=== PATIENT | male | born 1940 | race African-American/Black ===

== ENCOUNTER 2019-06-17 17:50 | IRF | payer MEDICARE, SELFPAY ==
--- NOTE | ~2019-06-17 | XR_ITS ---
EXAMINATION: XR knee LT 2V DATE: 06/20/2019 14:06 INDICATION: Left knee pain and swelling TECHNIQUE: Anteroposterior and crosstable lateral views of the left knee were obtained COMPARISON: None. FINDINGS: Alignment is normal. No fracture. Large left knee joint effusion/synovitis without layering lipohema rthrosis. Joint spaces appear relatively preserved on nonweightbearing imaging. Small osteophyte nitesh g the lateral margin of the anterior weightbearing medial femoral condyle. No cortical erosions. Smal l enthesophyte at the anterior tibial tuberosity. Bone island at the left femoral condyle. IMPRESSION: 1. Large left knee joint effusion and/or synovitis at the suprapatellar pouch. No acute osseous abnor mality. Reviewed, dictated and finalized at location A. D DESIGN ENGINEER IMPRESSION: 1. Large left knee joint effusion and/or synovitis at the suprapatellar pouch. No acute osseous abnormality.
--- NOTE | ~2019-06-17 | US_ITS ---
EXAMINATION: US venous doppler LE EXAM DATE: 06/18/2019 15:14 INDICATION: Bilateral lower extremity pain and tenderness. TECHNIQUE: Multiple grayscale, color flow and Doppler images of the lower extremity deep venous syste ms bilaterally were obtained and reviewed. There is no prior study for comparison. FINDINGS: Right side: The right common femoral, femoral and profunda veins demonstrate normal color flow, respi ratory variation, augmentation and compressibility. Compressibility, color flow confirmed within the right popliteal, posterior tibial, peroneal, and greater saphenous veins. Left side: The left common femoral, femoral and profunda veins demonstrate normal color flow, respira tory variation, augmentation and compressibility. Compressibility, color flow confirmed within the l eft popliteal, posterior tibial, peroneal, and greater saphenous veins. IMPRESSION: 1. No lower extremity deep venous thrombosis bilaterally. Reviewed, dictated and finalized at location B. CIPAL ADMINISTRATIVE CLERK
--- NOTE | ~2019-06-17 | XR_ITS ---
EXAMINATION: XR chest 2V DATE: 07/08/2019 14:32 INDICATION: Tuberculosis. TECHNIQUE: Frontal and lateral views of the chest were obtained. COMPARISON: None. FINDINGS: The chest demonstrates clear lungs without pneumonia, pleural effusion, or pneumothorax. Th e heart size is normal. IMPRESSION: 1. No acute cardiopulmonary disease. Reviewed, dictated and finalized at location A. L FOOD SERVICE SUPERVISOR
--- NOTE | ~2019-06-17 | XR_ITS ---
EXAMINATION: XR foot LT 2V, XR foot RT 2V DATE: 06/20/2019 14:06 INDICATION: Severe bilateral foot pain TECHNIQUE: 1. Dorsoplantar and lateral views of the left foot were obtained. 2. Dorsoplantar and lateral views of the right foot were obtained. COMPARISON: None. FINDINGS: Normal alignment at both feet. No acute fracture identified. There are intra-articular and extra hilda cular erosions at the heads of the left and right metatarsals, base of the first proximal phalanx and at the medial head of the right fifth metatarsal with location and configuration suggestive of gout. Likely enthesophyte at the lateral tuberosity at the base of the right fifth metatarsal. Mild osteoa rthritis at the bilateral first metatarsophalangeal joints and at the right third tarsal metatarsal j oint. IMPRESSION: 1. Cortical erosions at the heads of the right fifth and bilateral first metatarsals and at the base of the right first proximal phalanx which given location and appearance along with the only minimal a ssociated joint space tearing at the metatarsophalangeal joints would favor gout over other inflammat ory arthritides. 2. Mild polyarticular osteoarthritis. Reviewed, dictated and finalized at location A. ECT MANAGER PROCESS DEVELOPMENT IMPRESSION: 1. Cortical erosions at the heads of the right fifth and bilateral first metata rsals and at the base of the right first proximal phalanx which given location and appearance along with the only minimal associated joint space tearing at th e metatarsophalangeal joints would favor gout over other inflammatory arthritid es. 2. Mild polyarticular osteoarthritis.
--- NOTE | ~2019-06-17 | US_ITS ---
US renal BI 07/06/2019 13:35 Procedure: Realtime transabdominal ultrasound of the kidneys and bladder. Indication: Elevated BUN/creatinine Comparison: No prior studies for comparison. Findings: There is a right renal cyst measuring 2 cm. No solid masses, stones or hydronephrosis. The right kidney measures 9.1 cm and left kidney measures 9.1 cm. Bladder within normal limits. The pros jalloh gland is enlarged. Impression: 1: 2 cm right renal cyst. 2: Enlarged prostate gland. Reviewed, dictated and finalized at location B. R USE INSPECTOR Impression: 1: 2 cm right renal cyst. 2: Enlarged prostate gland.
--- NOTE | ~2019-06-17 | CT_ITS ---
EXAMINATION: CT brain wo con EXAM DATE: 06/25/2019 11:01 INDICATION: Impaired swallowing, decreased level of consciousness. Lethargic. Confusion. Temporary change in awareness. TECHNIQUE: Spiral CT of the head was performed without contrast. Axial, coronal and sagittal images were reviewed. The dose-length product (DLP) for this examination was 605.33 mGy-cm. The exposure w as tailored according to patient size, and iterative reconstruction (ASIR) was used as additional dos e reduction technique. There is no prior study for comparison. FINDINGS: There is no acute intraparenchymal hemorrhage. No evidence of intraparenchymal brain mass lesion. No evidence of acute infarction. Please note that initial head CT has limited sensitivity f or small or acute infarctions. There is old left caudate head and there are bilateral old thalamic l acunar infarctions. There is periventricular and subcortical hypodensity, nonspecific but probably r elated to small vessel ischemic disease. There is prominence of the sulci and ventricles related to cerebral atrophy. There is intracranial carotid arteriosclerosis. There are no extra-axial collec tions. There is no mass effect or midline shift. Patient has had bilateral ocular lens surgery. So ft tissue is unremarkable. The visualized sinuses and mastoid air cells are well aerated. IMPRESSION: 1. No acute intracranial findings. 2. Chronic age related findings. 3. Old lacunar infarctions. Reviewed, dictated and finalized at location A. UCTION ASSISTANT
[2019-06-17 17:50] VITALS: BP 140/67; PULSE 88; RESP 20; TEMP 36.8; O2SAT 99; BMI 23.1
--- NOTE | 2019-06-17 18:49 | ADMGEN ---
This patient, Joey Abebe, was admitted to [facility] Room 219-02. Patient/family oriented to hospital policies and general routines including ID bracelet, bed and alarms, visiting hours, pain management, procedures, bathroom and other care routines, personal items, smoking policy, room service/diet, and visiting hours. Valuables list has been completed. Information on how to activate the Rapid Response Team has been discussed. Patient/Family are encouraged to report perceived risks to care and to ask questions if they do not understand what they are told or what they should do.
[2019-06-17 20:21] VITALS: BP 132/76; PULSE 86; RESP 16; TEMP 37.1; O2SAT 94
[2019-06-18 04:50] LABS: Basophils Percent Auto 0.2 % (0.2-1.2); Eosinophils Percent Auto 0.3 % (0-4.4); Hematocrit 28.6 % (42.0-52.0); Hemoglobin 9.1 g/dL (14.0-18.0); Immature Granulocyte Absolute 0.09 K/mm3 (0.00-0.031); Immature Granulocyte Percent A 0.8 % (0-0.5); Lymphocytes Absolute Auto 1.06 K/mm3 (0.9-3.2); Lymphocytes Percent Auto 9.2 % (18.3-44.2); Mean Corpuscular HGB Conc 31.8 g/dl (32-36); Mean Corpuscular Volume 97.3 fl (80-100); Mean Platelet Volume 9.4 fl (7.4-10.4); Monocytes Absolute Auto 0.9 K/mm3 (0.1-0.6); Monocytes Percent Auto 8.2 % (2.6-8.5); Neutrophils Absolute Auto 9.4 K/mm3 (1.3-6.7); Neutrophils Percent Auto 81.3 % (45.5-73.1); Platelet Count Result 208 k/mm3 (150-375); Red Blood Count 2.94 M/mm3 (4.6-6.20); Red Cell Distribution Width 12.8 % (11.5-14.5); White Blood Count 11.5 K/mm3 (4.5-10.0)
[2019-06-18 05:13] LABS: Blood Urea Nitrogen 28 mg/dL (9-20); Calcium 8.3 mg/dL (8.4-10.2); Carbon Dioxide 24 mmol/L (22-30); Chloride 105 mmol/L (98-107); Cholesterol 102 mg/dL (0-200); Estimated CRCL calculation 33 ml/min; Estimated Glomerular Filt Rate 47; Glucose 136 mg/dL (75-110); HDL Direct 31 mg/dL; Potassium 3.8 mmol/L (3.4-5.0); Sodium 140 mmol/L (137-145); Triglycerides 57 mg/dL (<150)
[2019-06-18 05:24] LABS: LDL Cholesterol Direct 43 mg/dL
[2019-06-18 06:05] VITALS: BP 155/76; PULSE 95; RESP 18; TEMP 37; O2SAT 98
[2019-06-18] MEDS: hydroCHLOROthiazide 25 MG TABLET PO (08:57)
[2019-06-18] MEDS: ISOSORBIDE MONONITRATE 60 MG TAB.ER.24H PO (08:57)
[2019-06-18] MEDS: LOSARTAN POTASSIUM 100 MG TABLET PO (08:57)
[2019-06-18] MEDS: AMLODIPINE BESYLATE 5 MG TABLET 10 MG PO (08:57)
--- NOTE | 2019-06-18 11:00 | WPDREHABHP ---
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 The patient is an 79-year-old Afro[place] male with a past medical history of diabetes mellitus, hypertension, and hyperlipidemia who presented to his primary care physician on June 10, 2019 with lower extremity weakness and urinary incontinence. The primary care physician sent him to the emergency room at [facility] on the same day after his blood pressure was recorded at 206/100 in the office. He received IV labetalol in the emergency room. CT of the head demonstrated 1.4 x 1.2 centimeter density in the left basal ganglia consistent with hemorrhage/hematoma . Chest x-ray was negative. Troponins were elevated but stable. EKG showed first-degree AV block and nonspecific T-wave changes. Urinalysis was negative for infection but showed protein urea. No leukocytosis or fever recorded. Neurosurgery was consulted and he was admitted to ICU on a nicardipine drip. MRI of the brain did confirm the hemorrhage by showing redemonstration of 1.4 centimeter acute intraparenchymal hemorrhage in the left thalamus and also showed surrounding edema with mild mass effect upon the 3rd ventricle. There was also a possible small recent infarct along/ adjacent to the left splenium of the corpus callosum. the nicardipine drip was stopped overnight on June 11, 2019 when his blood pressure were at goal. It was restarted at on June 12, 2019 he was subsequently started on his oral home medications of amlodipine hydralazine Imdur and losartan and nicardipine drip was discontinued finally on the same day his amlodipine was increased on June 13, 2019. His hypertensive encephalopathy completely resolved. His creatinine was elevated to 1.6 on June 13, 2019 and given that he likely has chronic kidney disease ( 1.4 in August of 2017) in the setting of diabetes mellitus and hypertension. He is hemodynamically stable with a hemoglobin of 11.4. Diabetes large under control with hemoglobin A1c was 6.3. He passed his swallowing examination was placed on general diet. Physical examination continues to reveal right-sided weakness balance impairment decreased gross motor control and decreased safety responses and awareness and in fact on my examination he does have a speech defect going along with the left thalamic basal ganglia hemorrhage and expressive and comprehensive aphasia as time with bilateral lower extremity weakness. DVT prophylaxis with sequential compression devices only in the setting of hemorrhage. Therapy was initiated at the acute care facility and the patient transferred to us from [facility] on June 17, 2019 on June 17, 2019 FALLS OR SURGERIES: The patient has had no major surgeries in the 100 days prior to admission. They had no falls in the past year. They had no falls with injury in the past year. PASTMEDICAL HX diabetes mellitus high cholesterol hypertension PAST SURGICAL HISTORY: left hip surgery SOCIAL HISTORY: patient lives with his in a 1 level home with the level entry. Was independent with ADLs and functional transverse prior. He uses single-point cane for ambulation. He does not he does have a history of falls in the past year no major surgeries never smoker no alcohol drug abuse FAMILY HISTORY: several members of his family do have history of diabetes mellitus hypertension and heart disease PRIOR LEVEL OF FUNCTION: Eating was INDEPENDENT Oral Care was INDEPENDENT Toileting Hygiene was INDEPENDENT Shower/Bathing was INDEPENDENT Upper Body Dressing was INDEPENDENT Lower Body Dressing was INDEPENDENT Donning/Tabernash Footwear was INDEPE
[2019-06-18 12:56] VITALS: BMI 23.1
[2019-06-18 14:00] VITALS: BP 147/62; PULSE 84; RESP 20; TEMP 36.5; O2SAT 98
--- NOTE | 2019-06-18 14:54 | PCNSR ---
On 06/18/19, the student, Daniella Pope, provided care and completed [facility] documentation on this patient. I have reviewed the student's documentation and agree with the findings.
--- NOTE | 2019-06-18 16:59 | RPD ---
INDIVIDUALIZED PLAN OF CARE FOR Joey Abebe Brief Synthesis of Pre-Admission Screen, Post-Admission Evaluation and Therapy Evaluations: The patient presents to rehab with a left thalamic intraparechymal hemorrhage. Comorbidities include hypertensive emergency, diabetes mellitus, hypercholesterolemia, hypertensive encephalopathy, acute kidney injury, anemia, and weakness. Deficits include:ADLs, Balance, Cognition, Endurance, Family Training/Education, Mobility, Pain Management, ROM, Safety, Strength, and Transfers. Loan Servicing Officer/Case Management for: Discharge Planning and Patient/Family Counseling Physical Therapy: 5 days per week for 60 minutes. Treatments may include: Therapeutic Exercise, Gait Training, Neuromuscular Re-education, Transfer Training, Community Reintegration, Bed Mobility, Patient/Family Education, Wheelchair Mobility Group Therapy/Concurrent Therapy Rationales: -Improve attention span during functional activities in a distracted environment. -Enhance problem solving and/or adequate judgment skills during functional activities in a distracted environment. -Promote increased safety awareness in a distracted environment to reduce fall risk with functional tasks, transfers, and ambulation to allow a more safe, self-sufficient return to the home environment. -Improve dynamic balance skills to promote safety and independence with functional activities in a distracted environment for maximum gain. Occupational Therapy: 5 days per week for 60 minutes. Treatments may include: Therapeutic Exercise, Therapeutic Activity, Cognitive Training, Self-Care Transfer Training, Community Reintegration, Home Management, Patient/Family Education, Wheelchair Mobility Training, Energy Conservation Training Group Therapy/Concurrent Therapy Rationales: -Allow therapist to observe and teach generalization and carry-over of skills learned in individual therapy. -Enhance problem solving and sequencing skills during therapeutic activities in a distracted environment. -Promote increased safety awareness in a realistic setting to reduce fall risk with functional tasks due to visual and verbal distractions. -Increase functional level with ADLs, ADL transfers and use of adaptive equipment through therapeutic activities with others while promoting safety to allow a more safe, self-sufficient return home. Speech Therapy: 5 days per week for 60 minutes. Treatments may include: Dysphasia Therapy, Speech/Language/Communication Therapy, Cognitive Training, Patient/Family Education Group Therapy/Concurrent Therapy - Rationale: -Allow therapist to observe and teach generalization and carry-over of skills learned in individual therapy. -Improve comprehension skills with complex or abstract ideas through discussion in a realistic setting. -Enhance problem solving skills with complex issues during activities in a distracted environment. -Promote increased memory skills and concentration in a distracted environment for a safe transition home. -Improve attention and focus with language/communication skills in a realistic and supportive therapeutic setting. -Allow for practice of expression of basic needs and ideas through functional activities with others. Medical Prognosis: Good Anticipated Length of Stay: 10 days Rehab Goals: Eating Goal: 06-Independent Oral Hygiene Goal: 06-Independent Toileting Hygiene Goal: 03-Partial/Moderate Assistance Shower/Bathe Self Goal: 03-Partial/Moderate Assistance Upper Body Dressing Goal: 05-Setup or Clean Up Assistance Lower Body Dressing Goal: 03-Partial/Moderate Assistance Putting On/Taking Off Footwear Goal: 03-Partial/Moderate Assistance Rolling Left and Right Goal: 04-Supervision or Touching Assistance Sit to Lying Goal: 04-Supervision or Touching Assistance Lying to Sitting on Side of Bed Goal: 04-Supervision or Touching Assistance Sit to Stand Goal: 04-Supervision or Touching Assistance Chair/Dir-za-Vjher Transfer Goal: 04-Supervis
[2019-06-18 22:00] VITALS: BP 160/76; PULSE 99; RESP 16; TEMP 37.4; O2SAT 99
[2019-06-19 06:00] VITALS: BP 150/74; PULSE 98; RESP 16; TEMP 36.9; O2SAT 99
[2019-06-19] MEDS: AMLODIPINE BESYLATE 5 MG TABLET 10 MG PO (09:11)
[2019-06-19] MEDS: ISOSORBIDE MONONITRATE 60 MG TAB.ER.24H PO (09:11)
[2019-06-19] MEDS: hydroCHLOROthiazide 25 MG TABLET PO (09:11)
[2019-06-19] MEDS: LOSARTAN POTASSIUM 100 MG TABLET PO (09:12)
--- NOTE | 2019-06-19 11:00 | WPDNEURORHBP ---
Subjective Date/time seen: June 19, 2019 at 11:00 a.m. Interval history: patient has less amount of pay aching discomfort in his lower extremities is still remains aphasic to a certain extent with right-sided weakness however both lower extremity weakness with some muscle spasm He denies any headache chest pain shortness of breath or any neurological symptoms Review of Systems Constitutional: Constitutional: Reports no additional constitutional complaints Eyes: Eyes: Reports no additional eye complaints ENT: Reports system reviewed and no additional complaints, except as documented Cardiovascular: Cardiovascular: Reports no additional cardiovascular complaints Respiratory: Respiratory: Reports no additional respiratory complaints Gastrointestinal: Gastrointestinal: Reports no additional gastrointestinal complaints Genitourinary: Genitourinary: Reports no additional male genitourinary complaints Musculoskeletal: Musculoskeletal: Reports no additional musculoskeletal complaints Integumentary/Breasts: Skin/Breast: Reports system reviewed and no additional complaints, except as docu Neurologic: Reports system reviewed and no additional complaints, except as documented Psychiatric: Psychiatric: Reports no additional psychiatric complaints Exam Const: General: comfortable and no acute distress HENMT: General nose exam: Normal nares present Mouth: Yes moist mucous membranes Eyes: General: appearance normal, both eyes and all related structures Neck: Neck: supple and no JVD Resp: Effort & Inspection: normal respiratory effort Auscultation: clear to auscultation bilaterally Cardio: Rate: regular rate Rhythm: regular rhythm GI: GI Palp: Yes Soft to palpation Auscultation: normal bowel sounds Skin: General skin exam: normal color and no rashes or lesions noted Neuro: Other: patient is awake and alert will oriented in time place and person however clearly has aphasic defect and right-sided weakness along with bilateral lower extremity weakness with overall neurological examination stable without any worsening Extrem: General: normal to inspection Objective Data Vital Signs Vital Signs: Vital Signs - 24 hr 06/19/19 14:00 06/19/19 22:00 06/20/19 06:00 Temperature 36.8 C 37.2 C 37.1 C Pulse Rate 89 96 100 Respiratory Rate 18 18 18 Blood Pressure 145/68 H 174/82 H 160/84 H Pulse Oximetry 98 99 98 Intake/Output Intake/Output: Intake & Output 06/17/19 06/18/19 06/19/19 06/20/19 23:59 23:59 23:59 23:59 Intake Total 480 420 240 Balance 480 420 240 Meds/Results Medications: Active Medications Generic Name Dose Route Start Last Admin Trade Name Santiagoq PRN Reason Stop Dose Admin Acetaminophen 650 mg 06/17/19 20:19 Tylenol Tablet PO Q6H PRN Pain (Scale Score 1-3) Amlodipine Besylate 10 mg 06/18/19 09:00 06/20/19 08:32 Norvasc PO 10 mg DAILY VERONIQUE Administration Hydrochlorothiazide 25 mg 06/18/19 09:00 06/20/19 08:32 Hydrochlorothiazide PO 25 mg DAILY VERONIQUE Administration Isosorbide Mononitrate 60 mg 06/18/19 09:00 06/20/19 08:32 Imdur PO 60 mg DAILY VERONIQUE Administration Losartan Potassium 100 mg 06/18/19 09:00 06/20/19 08:32 Cozaar PO 100 mg DAILY VERONIQUE Administration Trolamine Salicylate 1 applic 06/18/19 09:00 06/20/19 08:32 Mobisyl TOPICAL 1 applic DAILY VERONIQUE Administration Trolamine Salicylate 1 applic 06/17/19 23:26 Mobisyl TOPICAL PRN PRN FOOT PAIN Radiology Results: ITS Impressions Venous Doppler Study 06/18/19 15:15 IMPRESSION: 1. No lower extremity deep venous thrombosis bilaterally. Progress Note: A&P Assessment and Plan (1) Hyperlipidemia: Code(s): E78.5 - Hyperlipidemia, unspecified Status: Acute (2) Hypertension: Code(s): I10 - Essential (primary) hypertension Status: Acute (3) Diabetes mellitus: Code(s): E11.9 - Type 2 diabetes debo
[2019-06-19 14:00] VITALS: BP 145/68; PULSE 89; RESP 18; TEMP 36.8; O2SAT 98
[2019-06-19 22:00] VITALS: BP 174/82; PULSE 96; RESP 18; TEMP 37.2; O2SAT 99
[2019-06-20 06:00] VITALS: BP 160/84; PULSE 100; RESP 18; TEMP 37.1; O2SAT 98
[2019-06-20] MEDS: LOSARTAN POTASSIUM 100 MG TABLET PO (08:32)
[2019-06-20] MEDS: AMLODIPINE BESYLATE 5 MG TABLET 10 MG PO (08:32)
[2019-06-20] MEDS: hydroCHLOROthiazide 25 MG TABLET PO (08:32)
[2019-06-20] MEDS: ISOSORBIDE MONONITRATE 60 MG TAB.ER.24H PO (08:32)
--- NOTE | 2019-06-20 13:59 | WPDNEURORHBP ---
Subjective Date/time seen: 06/20/19 13:59 Interval history: this 79-year-old gentleman is here after suffering from intracranial hemorrhage in the left thalamic basal ganglia region which has left him with the generalized weakness right more so than the left however he does have bilateral lower extremity pain including the knee and the foot which is hard to explain just on the basis of the intracranial hemorrhage the venous Doppler is negative for any venous thrombosis I am suspecting is possibly could be a gout because he does have a remote history of having at gout according to his Review of Systems Constitutional: Constitutional: Reports no additional constitutional complaints Eyes: Eyes: Reports no additional eye complaints ENT: Reports system reviewed and no additional complaints, except as documented Cardiovascular: Cardiovascular: Reports no additional cardiovascular complaints Respiratory: Respiratory: Reports no additional respiratory complaints Gastrointestinal: Gastrointestinal: Reports no additional gastrointestinal complaints Genitourinary: Genitourinary: Reports no additional male genitourinary complaints Musculoskeletal: Musculoskeletal: Reports no additional musculoskeletal complaints Integumentary/Breasts: Skin/Breast: Reports system reviewed and no additional complaints, except as docu Neurologic: Reports system reviewed and no additional complaints, except as documented Psychiatric: Psychiatric: Reports no additional psychiatric complaints Exam Const: General: comfortable and no acute distress HENMT: General nose exam: Normal nares present Mouth: Yes moist mucous membranes Eyes: General: appearance normal, both eyes and all related structures Neck: Neck: supple and no JVD Resp: Effort & Inspection: normal respiratory effort Auscultation: clear to auscultation bilaterally Cardio: Rate: regular rate Rhythm: regular rhythm GI: GI Palp: Yes Soft to palpation Auscultation: normal bowel sounds Skin: General skin exam: normal color and no rashes or lesions noted Neuro: Other: patient is alert and oriented sitting in the chair he is quite tender in his lower extremities very bright touch it is hard to discern what the cause of his discomfort or pain is the little swelling of the left knee and the foot however that I am not entirely clear is responsible for his aches and pains in the lower extremities which hamper his PT and OT Extrem: Other: tender left knee and tender both lower extremities equally to a point that the patient becomes very uncomfortable when places in the leg and feet are touch Psych: Mental Status: mental status grossly normal Objective Data Vital Signs Vital Signs: Vital Signs - 24 hr 06/19/19 14:00 06/19/19 22:00 06/20/19 06:00 Temperature 36.8 C 37.2 C 37.1 C Pulse Rate 89 96 100 Respiratory Rate 18 18 18 Blood Pressure 145/68 H 174/82 H 160/84 H Pulse Oximetry 98 99 98 Intake/Output Intake/Output: Intake & Output 06/17/19 06/18/19 06/19/19 06/20/19 23:59 23:59 23:59 23:59 Intake Total 480 420 240 Balance 480 420 240 Meds/Results Medications: Active Medications Generic Name Dose Route Start Last Admin Trade Name Freq PRN Reason Stop Dose Admin Acetaminophen 650 mg 06/17/19 20:19 Tylenol Tablet PO Q6H PRN Pain (Scale Score 1-3) Amlodipine Besylate 10 mg 06/18/19 09:00 06/20/19 08:32 Norvasc PO 10 mg DAILY VERONIQUE Administration Hydrochlorothiazide 25 mg 06/18/19 09:00 06/20/19 08:32 Hydrochlorothiazide PO 25 mg DAILY VERONIQUE Administration Isosorbide Mononitrate 60 mg 06/18/19 09:00 06/20/19 08:32 Imdur PO 60 mg DAILY VERONIQUE Administration Losartan Potassium 100 mg 06/18/19 09:00 06/20/19 08:32 Cozaar PO 100 mg DAILY VERONIQUE Administration Trolamine Salicylate 1 applic 06/18/19 09:00 06/20/19 08:32 Mobisyl TOPICAL 1 applic DAILY VERONIQUE Administration Trolamine Salicylate 1 javi
[2019-06-20 14:00] VITALS: BP 158/76; PULSE 92; RESP 18; TEMP 36.4; O2SAT 95
[2019-06-20 14:11] LABS: Uric Acid 8.2 mg/dL (3.5-8.5)
[2019-06-20] MEDS: ACETAMINOPHEN 500 MG TABLET 1000 MG PO (17:48)
[2019-06-20] MEDS: COLCHICINE 0.6 MG TABLET PO (20:02)
[2019-06-20 21:05] VITALS: BP 147/81; PULSE 86; RESP 20; TEMP 37.2; O2SAT 100
[2019-06-21 06:00] VITALS: BP 173/90; PULSE 100; RESP 16; TEMP 37; O2SAT 100
[2019-06-21] MEDS: ACETAMINOPHEN 500 MG TABLET 1000 MG PO ×3 (08:49→19:48)
[2019-06-21] MEDS: hydroCHLOROthiazide 25 MG TABLET PO (08:50)
[2019-06-21] MEDS: AMLODIPINE BESYLATE 5 MG TABLET 10 MG PO (08:50)
[2019-06-21] MEDS: ISOSORBIDE MONONITRATE 60 MG TAB.ER.24H PO (08:50)
[2019-06-21] MEDS: COLCHICINE 0.6 MG TABLET PO ×2 (08:50→19:49)
[2019-06-21] MEDS: LOSARTAN POTASSIUM 100 MG TABLET PO (08:51)
--- NOTE | 2019-06-21 12:57 | PCDIET ---
Nutrition Follow-Up Complete: Inadequate energy intake related to weakness and lower appetite as evidenced by family's report of unintentional weight loss of a few pounds. Pt will consume greater than 75% of all meals Goal not met. Pt has eaten 0-40% of meals. Nutrition recommendation: Recommend diet order be changed to DM CHO consistent and low-sodium (4gm)to help control blood glucose levels and HTN, and help pt meet nutrient needs. Recommend addition of Thrive BID to provide additional Pro and calories. Last recorded weight is 75.4 kg. Bowel Motility:+BM 06/20 Labs Reviewed:Last recorded labs from 06/18: Na(140), K(3.8), GFR(47), Cr(1.7) Meds Noted:Norvasc, Imdur, colchicine Po, cozaar Additional Notes: Pt states appetite is ok, that it comes and goes. Eats 0-40% of all meals. Reports no N/V or abdominal pain, just lack of hunger. Provided stroke ed to pt and , although pt quickly lost focus. Will monitor labs and intake. Will follow up in 3 days.
[2019-06-21 14:00] VITALS: BP 135/72; PULSE 82; RESP 12; TEMP 36.5; O2SAT 100
--- NOTE | 2019-06-21 14:01 | PCNSR ---
On 06/21/19, the student, Daniella Pope, provided care and completed [facility] documentation on this patient. I have reviewed the student's documentation and agree with the findings.
[2019-06-21 22:00] VITALS: BP 144/73; PULSE 84; RESP 18; TEMP 36.6; O2SAT 99
[2019-06-22 06:00] VITALS: BP 138/76; PULSE 88; RESP 18; TEMP 36.3; O2SAT 98
[2019-06-22 08:00] VITALS: PULSE 88; RESP 18; O2SAT 98
[2019-06-22] MEDS: LOSARTAN POTASSIUM 100 MG TABLET PO (09:26)
[2019-06-22] MEDS: ISOSORBIDE MONONITRATE 60 MG TAB.ER.24H PO (09:26)
[2019-06-22] MEDS: hydroCHLOROthiazide 25 MG TABLET PO (09:26)
[2019-06-22] MEDS: AMLODIPINE BESYLATE 5 MG TABLET 10 MG PO (09:26)
[2019-06-22] MEDS: COLCHICINE 0.6 MG TABLET PO ×2 (09:26→20:19)
[2019-06-22] MEDS: ACETAMINOPHEN 500 MG TABLET 1000 MG PO ×3 (09:27→17:28)
[2019-06-22 14:00] VITALS: BP 131/67; PULSE 88; RESP 16; TEMP 36.4; O2SAT 100
--- NOTE | 2019-06-22 14:39 | WPDNEURORHBP ---
Subjective Date/time seen: 06/22/19 14:39 Interval history: this 79-year-old gentleman is here after suffering from intracranial hemorrhage affecting the left side /left cerebral hemisphere with is speech defect and right-sided hemiparesis however is Hermann handicap been pain in his both lower extremities where he is unable to engage in therapy in spite of the use of colchicine which has started him with the presumptive diagnosis of gout in his foot and the left knee The consultation from the orthopedic physician for his left knee fusion is pending No headache no chest pain no abdominal pain no fever no chills no sore throat and no nausea and vomiting Review of Systems Constitutional: Constitutional: Reports no additional constitutional complaints Eyes: Eyes: Reports no additional eye complaints ENT: Reports system reviewed and no additional complaints, except as documented Cardiovascular: Cardiovascular: Reports no additional cardiovascular complaints Respiratory: Respiratory: Reports no additional respiratory complaints Gastrointestinal: Gastrointestinal: Reports no additional gastrointestinal complaints Genitourinary: Genitourinary: Reports no additional male genitourinary complaints Musculoskeletal: Musculoskeletal: Reports no additional musculoskeletal complaints Integumentary/Breasts: Skin/Breast: Reports system reviewed and no additional complaints, except as docu Exam Const: General: comfortable and no acute distress HENMT: General nose exam: Normal nares present Mouth: Yes moist mucous membranes Eyes: General: appearance normal, both eyes and all related structures Neck: Neck: supple and no JVD Resp: Effort & Inspection: normal respiratory effort Auscultation: clear to auscultation bilaterally Cardio: Rate: regular rate Rhythm: regular rhythm GI: GI Palp: Yes Soft to palpation Auscultation: normal bowel sounds Skin: General skin exam: normal color and no rashes or lesions noted Neuro: Other: patient is partially oriented in time place and person mild speech defect bilateral lower extremity weakness due to pain and discomfort more so than anything else along with right-sided hemiparesis Extrem: General: normal to inspection Objective Data Vital Signs Vital Signs: Vital Signs - 24 hr 06/21/19 22:00 06/22/19 06:00 06/22/19 08:00 Temperature 36.6 C 36.3 C L Pulse Rate 84 88 88 Respiratory Rate 18 18 18 Blood Pressure 144/73 H 138/76 Pulse Oximetry 99 98 98 Intake/Output Intake/Output: Intake & Output 06/19/19 06/20/19 06/21/19 06/22/19 23:59 23:59 23:59 23:59 Intake Total 420 600 600 240 Balance 420 600 600 240 Meds/Results Medications: Active Medications Generic Name Dose Route Start Last Admin Trade Name Freq PRN Reason Stop Dose Admin Acetaminophen 650 mg 06/17/19 20:19 Tylenol Tablet PO Q6H PRN Pain (Scale Score 1-3) Acetaminophen 1,000 mg 06/20/19 17:00 06/22/19 14:31 Tylenol Tablet PO 1,000 mg TID VERONIQUE Administration Amlodipine Besylate 10 mg 06/18/19 09:00 06/22/19 09:26 Norvasc PO 10 mg DAILY VERONIQUE Administration Colchicine 0.6 mg 06/20/19 21:00 06/22/19 09:26 Colchicine Po PO 0.6 mg Q12HR VERONIQUE Administration Hydrochlorothiazide 25 mg 06/18/19 09:00 06/22/19 09:26 Hydrochlorothiazide PO 25 mg DAILY VERONIQUE Administration Isosorbide Mononitrate 60 mg 06/18/19 09:00 06/22/19 09:26 Imdur PO 60 mg DAILY VERONIQUE Administration Losartan Potassium 100 mg 06/18/19 09:00 06/22/19 09:26 Cozaar PO 100 mg DAILY VERONIQUE Administration Trolamine Salicylate 1 applic 06/18/19 09:00 06/22/19 09:27 Mobisyl TOPICAL 1 applic DAILY VERONIQUE Administration Trolamine Salicylate 1 applic 06/17/19 23:26 Mobisyl TOPICAL PRN PRN FOOT PAIN Radiology Results: ITS Impressions Venous Doppler Study 06/18/19 15:15 IMPRESSION: 1. No lower extremity deep venous thrombosis bilaterally.
--- NOTE | 2019-06-22 15:26 | PCCCNOTE ---
On 06/22/19, the student, [Toni Alvarado], provided care and completed [facility] documentation on this patient. I have reviewed the student's documentation and agree with the findings.
--- NOTE | 2019-06-22 16:10 | PM.CNOR ---
Assessment and Plan Assessment and plan (1) Knee effusion, left: Code(s): M25.462 - Effusion, left knee Status: Acute Assessment and Plan: Large left knee effusion. Very mild degenerative changes on radiographs. I aspirated 50 mL. He tolerated this well. No evidence of infection. I did send cultures. Gout is a likely possibility. Crystal analysis pending. I injected 80 mg of Depo-Medrol. I reviewed exercises. I expect he will feel significantly better in the next day or 2. Thank you for the consultation. History of Present Illness HPI Consult date: 06/22/19 Consult reason: joint pain Chief complaint: L Thalamic IPH Narrative: Complains of swelling and pain in the left knee. Difficulty ambulating. Difficulty with range of motion. History of gout and other joints. No other prior trauma or inciting event. Review of Systems Review of Systems: Narrative: Currently undergoing stroke rehabilitation in the rehab unit. All systems reviewed & are unremarkable except as noted in HPI and below PMFSH Past Medical History Medical History (Updated 06/22/19 @ 16:14 by Loi Dia MD) Diabetes mellitus Hyperlipidemia Hypertension Knee effusion, left Family History Family History Mother Diabetes mellitus Social History Social History Smoking packs per day: 1 Smoking cigarettes per day: 20.0 Years smoked: 30 Smoking pack-years: 30.00 Smoking status: Former smoker Tobacco type: cigarettes Alcohol intake: never Substance use: never Gender identity (if verbalized by the patient): Male Spiritual care concerns: No Agree to blood products: Yes Meds Home Medications and Allergies Home Medications Medication Instructions Recorded Confirmed Type Analgesic Creme TOPICAL BID PRN 06/17/19 History acetaminophen 650 mg PO Q6H PRN 06/17/19 06/17/19 History amlodipine 10 mg PO DAILY 06/17/19 06/17/19 History hydrochlorothiazide 25 mg PO DAILY 06/17/19 06/17/19 History isosorbide mononitrate 60 mg PO DAILY 06/17/19 06/17/19 History losartan 100 mg PO DAILY 06/17/19 06/17/19 History Allergies Allergy/AdvReac Type Severity Reaction Status Date / Time Penicillins AdvReac Rash Verified 06/17/19 18:58 Vital Signs Vital Signs - 24 hr 06/21/19 22:00 06/22/19 06:00 06/22/19 08:00 Temperature 36.6 C 36.3 C L Pulse Rate 84 88 88 Respiratory Rate 18 18 18 Blood Pressure 144/73 H 138/76 Pulse Oximetry 99 98 98 06/22/19 14:00 Temperature 36.4 C Pulse Rate 88 Respiratory Rate 16 Blood Pressure 131/67 Pulse Oximetry 100 Exam Const: General: no acute distress Orientation/consciousness: patient oriented x3 Skin: General skin exam: normal color, no rashes or lesions noted and no erythema Neuro: General: patient oriented x3 Extrem: General: capillary refill normal, no calf tenderness bilaterally and no pedal edema Left lower extremity: knee ( large effusion. No warmth. No erythema. No instability or deformity. R) Other: Range of motion limited by pain. 30? to 90?. Results Labs Result Diagrams: 06/18/19 04:33 06/18/19 04:33 Labs: H & H 06/18/19 Range/Units 04:33 Hgb 9.1 L (14.0-18.0) g/dL Hct 28.6 L (42.0-52.0) % All other labs normal.
[2019-06-22] MEDS: methylPREDNISolone ACETATE 80 MG/ML VIAL I-ARTICULR (16:15)
--- NOTE | 2019-06-22 16:16 | P.OPB_ITS ---
Procedure Note - Brief Procedure Note - Brief Date of procedure: 06/22/19 Pre-op diagnosis: L Thalamic IPH Left knee effusion. Post-op diagnosis: same Procedure performed: Aspiration left knee, and Injection of 80 mg Depo- Medrol. Description of procedure: 50 mL of inflammatory clear fluid was aspirated through a superior medial approach. 3 mL of 1% lidocaine was used for local anesthesia. 80 mg of Depo-Medrol was then injected. He tolerated the procedure well. He was instantly able to move his knee with less pain and through a larger range of motion. Surgeon: Loi Dia MD Pathology: yes ( Cultures, crystal analysis, cell count.) Complications: None
[2019-06-22 19:19] VITALS: PULSE 88; RESP 16; O2SAT 100
[2019-06-22 22:00] VITALS: PULSE 81; RESP 18; TEMP 36.6; O2SAT 99
[2019-06-22 22:33] LABS: Appearance Synovial Fluid Hazy (Clear); Color Synovial Fluid Yellow (Colorless); Source Synovial Fluid Synovial fluid
[2019-06-22 22:34] LABS: Lymphocytes Synovial Fluid 11 %; Neutrophils Synovial Fluid 89 % (0-25); Nucleated Cell Synovial Fluid 5300 /uL (0-200); RBC Synovial Fluid 10812 /uL (0-0)
[2019-06-23 06:00] VITALS: BP 138/72; PULSE 84; RESP 18; TEMP 36.5; O2SAT 98
[2019-06-23] MEDS: hydroCHLOROthiazide 25 MG TABLET PO (08:21)
[2019-06-23] MEDS: ISOSORBIDE MONONITRATE 60 MG TAB.ER.24H PO (08:21)
[2019-06-23] MEDS: AMLODIPINE BESYLATE 5 MG TABLET 10 MG PO (08:21)
[2019-06-23] MEDS: ACETAMINOPHEN 500 MG TABLET 1000 MG PO ×2 (08:21→17:00)
[2019-06-23] MEDS: LOSARTAN POTASSIUM 100 MG TABLET PO (08:22)
[2019-06-23] MEDS: COLCHICINE 0.6 MG TABLET PO ×2 (08:22→21:04)
--- NOTE | 2019-06-23 13:00 | PC.NURSE ---
pt refused tylenol at this time stating he was fine. updated.
[2019-06-23 13:05] VITALS: BP 116/62; PULSE 88; RESP 16; TEMP 36.4; O2SAT 96
[2019-06-23 13:46] VITALS: BP 116/62; PULSE 88; RESP 16; TEMP 36.4; O2SAT 96
--- NOTE | 2019-06-23 13:50 | PC.NURSE ---
call placed to family to update them on patient's fall. Dr Graham in house and updated. no injuries noted.
--- NOTE | 2019-06-23 14:24 | WPDNEURORHBP ---
Subjective Date/time seen: 06/23/19 14:24 Interval history: the patient is here due to intracranial hemorrhage however has been handicapped by significant amount of the pain in his legs and foot which is a better and he has received the injection in his left knee and probably has the infusion drained also by the orthopedic physician and that is making the situation much better than the previous stays I suspect the colchicine is also working for the foot and leg pain He denies any headache chest pain shortness of breath abdominal pain nausea vomiting fever chills or sore throat Review of Systems Review of Systems: All systems reviewed & are unremarkable except as noted in HPI and below Exam Const: General: comfortable and no acute distress HENMT: General nose exam: Normal nares present Mouth: Yes moist mucous membranes Eyes: General: appearance normal, both eyes and all related structures Neck: Neck: supple and no JVD Resp: Effort & Inspection: normal respiratory effort Auscultation: clear to auscultation bilaterally Cardio: Rate: regular rate Rhythm: regular rhythm GI: GI Palp: Yes Soft to palpation Auscultation: normal bowel sounds Skin: General skin exam: normal color and no rashes or lesions noted Neuro: Other: patient is awake and alert does have expressive aphasia and also cognitive deficit beside having the right-sided weakness he also has bilateral lower extremity weakness related to pains and aches in his legs and feet however it is better and is improving Extrem: Other: tenderness and swelling of the left knee Psych: Other: patient does have cognitive deficit as documented before Objective Data Vital Signs Vital Signs: Vital Signs - 24 hr 06/22/19 19:19 06/22/19 22:00 06/23/19 06:00 Temperature 36.6 C 36.5 C Pulse Rate 88 81 84 Respiratory Rate 16 18 18 Blood Pressure 138/72 Pulse Oximetry 100 99 98 06/23/19 13:05 06/23/19 13:46 Temperature 36.4 C L 36.4 C L Pulse Rate 88 88 Respiratory Rate 16 16 Blood Pressure 116/62 116/62 Pulse Oximetry 96 96 Intake/Output Intake/Output: Intake & Output 06/20/19 06/21/19 06/22/19 06/23/19 23:59 23:59 23:59 23:59 Intake Total 600 600 540 300 Balance 600 600 540 300 Meds/Results Medications: Active Medications Generic Name Dose Route Start Last Admin Trade Name Freq PRN Reason Stop Dose Admin Acetaminophen 650 mg 06/17/19 20:19 Tylenol Tablet PO Q6H PRN Pain (Scale Score 1-3) Acetaminophen 1,000 mg 06/20/19 17:00 06/23/19 08:21 Tylenol Tablet PO 1,000 mg TID VERONIQUE Administration Amlodipine Besylate 10 mg 06/18/19 09:00 06/23/19 08:21 Norvasc PO 10 mg DAILY VERONIQUE Administration Colchicine 0.6 mg 06/20/19 21:00 06/23/19 08:22 Colchicine Po PO 0.6 mg Q12HR VERONIQUE Administration Hydrochlorothiazide 25 mg 06/18/19 09:00 06/23/19 08:21 Hydrochlorothiazide PO 25 mg DAILY VERONIQUE Administration Isosorbide Mononitrate 60 mg 06/18/19 09:00 06/23/19 08:21 Imdur PO 60 mg DAILY VERONIQUE Administration Losartan Potassium 100 mg 06/18/19 09:00 06/23/19 08:22 Cozaar PO 100 mg DAILY VERONIQUE Administration Trolamine Salicylate 1 applic 06/18/19 09:00 06/23/19 08:20 Mobisyl TOPICAL 1 applic DAILY VERONIQUE Administration Trolamine Salicylate 1 applic 06/17/19 23:26 Mobisyl TOPICAL PRN PRN FOOT PAIN Radiology Results: ITS Impressions Venous Doppler Study 06/18/19 15:15 IMPRESSION: 1. No lower extremity deep venous thrombosis bilaterally. Foot X-Ray 06/20/19 14:25 IMPRESSION: 1. Cortical erosions at the heads of the right fifth and bilateral first metatarsals and at the base of the right first proximal phalanx which given location and appearance along with the only minimal associated joint space tearing at the metatarsophalangeal joints would favor gout over other inflammatory arthritides. 2. Mild polyarticular osteoarthritis. Foot
[2019-06-23 22:00] VITALS: BP 155/81; PULSE 85; RESP 18; TEMP 36.9; O2SAT 96
[2019-06-24 06:00] VITALS: BP 170/83; PULSE 105; RESP 19; TEMP 36.4; O2SAT 90
[2019-06-24] MEDS: ACETAMINOPHEN 500 MG TABLET 1000 MG PO (08:40)
[2019-06-24] MEDS: hydroCHLOROthiazide 25 MG TABLET PO (08:41)
[2019-06-24] MEDS: LOSARTAN POTASSIUM 100 MG TABLET PO (08:41)
[2019-06-24] MEDS: ISOSORBIDE MONONITRATE 60 MG TAB.ER.24H PO (08:41)
[2019-06-24] MEDS: AMLODIPINE BESYLATE 5 MG TABLET 10 MG PO (08:41)
[2019-06-24] MEDS: COLCHICINE 0.6 MG TABLET PO ×2 (08:41→21:35)
[2019-06-24 11:13] LABS: Basophils Percent Auto 0.3 % (0.2-1.2); Eosinophils Absolute Auto 0.1 K/mm3 (0-0.3); Eosinophils Percent Auto 0.5 % (0-4.4); Hematocrit 36.8 % (42.0-52.0); Hemoglobin 11.1 g/dL (14.0-18.0); Immature Granulocyte Absolute 0.07 K/mm3 (0.00-0.031); Immature Granulocyte Percent A 0.7 % (0-0.5); Lymphocytes Absolute Auto 1.46 K/mm3 (0.9-3.2); Lymphocytes Percent Auto 15.5 % (18.3-44.2); Mean Corpuscular HGB Conc 30.2 g/dl (32-36); Mean Corpuscular Volume 99.5 fl (80-100); Mean Platelet Volume 9.3 fl (7.4-10.4); Monocytes Absolute Auto 0.6 K/mm3 (0.1-0.6); Monocytes Percent Auto 6.2 % (2.6-8.5); Neutrophils Absolute Auto 7.2 K/mm3 (1.3-6.7); Neutrophils Percent Auto 76.8 % (45.5-73.1); Platelet Count Result 383 k/mm3 (150-375); Red Cell Distribution Width 12.4 % (11.5-14.5); White Blood Count 9.4 K/mm3 (4.5-10.0)
[2019-06-24 11:41] LABS: Blood Urea Nitrogen 34 mg/dL (9-20); Calcium 9.1 mg/dL (8.4-10.2); Carbon Dioxide 28 mmol/L (22-30); Chloride 93 mmol/L (98-107); Estimated CRCL calculation 33 ml/min; Estimated Glomerular Filt Rate 47; Glucose 172 mg/dL (75-110); Sodium 137 mmol/L (137-145)
--- NOTE | 2019-06-24 12:26 | PCDIET ---
Nutrition Follow-Up Complete: Nutrition Diagnosis: Inadequate energy intake related to weakness and lower appetite as evidenced by family's report of unintentional weight loss of a few pounds. Nutrition Goal: Patient will consume greater than 75% of all meals Goal not met. Average intake from 06/22/19 was 42% of meals. Patient reports appetite is improving, but still not good. Does take Thrive Ice Cream BID and would like to add Ensure Enlive (350kcal, 20g protein) BID. Agree with heart healthy diet watermaster; however, patient may benefit from regular diet in the short term to promote intake. Last recorded weight is 75.4 kg. Recommend obtaining new weight. Bowel Motility: +BM today. Labs Reviewed: No new labs available. Meds Noted: Hydrochlorothiazide Additional Notes: No documented skin breakdown. Recommend adding Ensure Enlive BID. Nutrition Monitoring and Evaluation: Will monitor labs and intake. Will follow up in 5 days.
[2019-06-24 14:00] VITALS: BP 130/51; PULSE 83; RESP 16; TEMP 36.4; O2SAT 100
[2019-06-24 19:22] VITALS: BP 119/72; PULSE 94; RESP 20; O2SAT 98
[2019-06-24 21:21] LABS: Glucose Point of Care 186 (65-105)
[2019-06-24 22:00] VITALS: BP 135/75; PULSE 84; RESP 20; TEMP 36.6; O2SAT 100
[2019-06-25 05:33] LABS: Basophils Percent Auto 0.4 % (0.2-1.2); Eosinophils Absolute Auto 0.1 K/mm3 (0-0.3); Eosinophils Percent Auto 0.9 % (0-4.4); Hematocrit 33.2 % (42.0-52.0); Hemoglobin 10.6 g/dL (14.0-18.0); Immature Granulocyte Absolute 0.05 K/mm3 (0.00-0.031); Immature Granulocyte Percent A 0.5 % (0-0.5); Lymphocytes Absolute Auto 1.51 K/mm3 (0.9-3.2); Lymphocytes Percent Auto 15.8 % (18.3-44.2); Mean Corpuscular HGB Conc 31.9 g/dl (32-36); Mean Corpuscular Hemoglobin 30.1 pg (26-34); Mean Corpuscular Volume 94.3 fl (80-100); Mean Platelet Volume 8.6 fl (7.4-10.4); Monocytes Absolute Auto 0.6 K/mm3 (0.1-0.6); Monocytes Percent Auto 5.9 % (2.6-8.5); Neutrophils Absolute Auto 7.3 K/mm3 (1.3-6.7); Neutrophils Percent Auto 76.5 % (45.5-73.1); Platelet Count Result 422 k/mm3 (150-375); Red Blood Count 3.52 M/mm3 (4.6-6.20); Red Cell Distribution Width 12.4 % (11.5-14.5); White Blood Count 9.6 K/mm3 (4.5-10.0)
[2019-06-25 05:48] LABS: Blood Urea Nitrogen 41 mg/dL (9-20); Carbon Dioxide 30 mmol/L (22-30); Chloride 94 mmol/L (98-107); Estimated CRCL calculation 30 ml/min; Estimated Glomerular Filt Rate 42; Glucose 141 mg/dL (75-110); Potassium 3.9 mmol/L (3.4-5.0); Sodium 137 mmol/L (137-145)
[2019-06-25 06:00] VITALS: BP 150/76; PULSE 86; RESP 18; TEMP 36.4; O2SAT 99
[2019-06-25] MEDS: ISOSORBIDE MONONITRATE 60 MG TAB.ER.24H PO (09:18)
[2019-06-25] MEDS: hydroCHLOROthiazide 25 MG TABLET PO (09:18)
[2019-06-25] MEDS: COLCHICINE 0.6 MG TABLET PO ×2 (09:18→20:29)
[2019-06-25] MEDS: AMLODIPINE BESYLATE 5 MG TABLET 10 MG PO (09:18)
[2019-06-25] MEDS: LOSARTAN POTASSIUM 100 MG TABLET PO (09:18)
[2019-06-25] MEDS: ACETAMINOPHEN 500 MG TABLET 1000 MG PO ×3 (09:19→18:23)
--- NOTE | 2019-06-25 10:00 | NEURO_ITS ---
TEST: ELECTROENCEPHALOGRAM DIAGNOSIS: UNRESPONSIVE EPISODE PATIENT NUMBER: [id number] EEG NUMBER: [id number] RECORDING DATE: 06/25/19 CONDITION OF RECORDING: Drowsy and sleep EEG DESCRIPTION: Basic resting occipital frequency consists of poorly organized low 15-21hz beta mixed with 5-7hz theta and 3-4hz delta intermittently. Bilateral symmetrical sleep activity is seen during sleep. 3-4hz delta activity is seen in deeper stage of sleep. Intermittent regular EKG and muscle artifacts are also noted. Hyperventilation and photic stimulation were not done. Nonparoxysmal. Nonfocal. Nonlateralizing. IMPRESSION: Abnormal record due to the presence of bi-hemispheric theta and delta activity with no evidence of paroxysmal discharge. Clinical correlation recommended. These abnormalities could be suggestive of underlying organic or metabolic encephalopathy. MTDD
--- NOTE | 2019-06-25 10:19 | PC.NURSE ---
Patient having difficulty swallowing pills this morning which is not his normal. Pocketing, not able to swallow them or not able to figure out how to chew. This was while placed in applesauce and with frequent drinks after each bite. Alerted speech therapy for a bedside eval and Dr. Martini who ordered STAT CT. Already in process of getting EEG r/t to possible seizure activity from yesterday, 06/24/19.
[2019-06-25 10:45] VITALS: BP 136/82; BP 139/88; PULSE 84; PULSE 92; RESP 18; O2SAT 100; O2SAT 99
--- NOTE | 2019-06-25 12:22 | PCPTNOTE ---
attempted to see patient for physical therapy this am, however patient just leaving for STAT medical testing. Will attempt to see patient for additional treatment this pm pending patient's tolerance.
--- NOTE | 2019-06-25 13:56 | PCSTNOTE ---
Please refer to the Bedside Swallow Evaluation in the EMR.
[2019-06-25 14:00] VITALS: BP 148/73; PULSE 94; RESP 18; TEMP 36.5; O2SAT 98
[2019-06-25 20:00] VITALS: BP 121/72
[2019-06-25 20:50] VITALS: PULSE 89; RESP 18; O2SAT 100
[2019-06-25 22:00] VITALS: BP 121/72; PULSE 89; RESP 18; TEMP 36.6; O2SAT 100
[2019-06-26 06:00] VITALS: BP 159/81; PULSE 85; RESP 18; TEMP 36.4; O2SAT 100
[2019-06-26 08:00] VITALS: BP 103/56
[2019-06-26] MEDS: COLCHICINE 0.6 MG TABLET PO ×2 (09:52→20:13)
[2019-06-26] MEDS: AMLODIPINE BESYLATE 5 MG TABLET 10 MG PO (09:52)
[2019-06-26] MEDS: ISOSORBIDE MONONITRATE 60 MG TAB.ER.24H PO (09:53)
[2019-06-26] MEDS: LOSARTAN POTASSIUM 100 MG TABLET PO (09:53)
[2019-06-26] MEDS: hydroCHLOROthiazide 25 MG TABLET PO (09:53)
[2019-06-26] MEDS: ACETAMINOPHEN 500 MG TABLET 1000 MG PO (09:55)
--- NOTE | 2019-06-26 11:21 | WPDNEURORHBP ---
Subjective Date/time seen: stable no specific [id number]/22/20 11:21 Review of Systems Review of Systems: All systems reviewed & are unremarkable except as noted in HPI and below Functional Status Ambulation Ability Ambulation Assistive Devices: Parallel Bars Exam Const: General: cooperative, comfortable and no acute distress Eyes: General: appearance normal, both eyes and all related structures Neck: Neck: full ROM Resp: Effort & Inspection: normal respiratory effort and able to speak in complete sentences Auscultation: clear to auscultation bilaterally Cardio: Rate: regular rate Rhythm: regular rhythm GI: Auscultation: normal bowel sounds Skin: General skin exam: no rashes or lesions noted Neuro: General: patient oriented x3 Cranial nerves: Yes CN's II-XII intact bilaterally Extrem: General: normal exam except as noted (left knee some better) Psych: Mental Status: mental status grossly normal Objective Data Vital Signs Vital Signs: Vital Signs - 24 hr 06/25/19 14:00 06/25/19 20:00 06/25/19 20:50 Temperature 36.5 C Pulse Rate 94 89 Respiratory Rate 18 18 Blood Pressure 148/73 H 121/72 Pulse Oximetry 98 100 06/25/19 22:00 06/26/19 06:00 Temperature 36.6 C 36.4 C L Pulse Rate 89 85 Respiratory Rate 18 18 Blood Pressure 121/72 159/81 H Pulse Oximetry 100 100 Intake/Output Intake/Output: Intake & Output 06/23/19 06/24/19 06/25/19 06/26/19 23:59 23:59 23:59 23:59 Intake Total 540 170 460 240 Balance 540 170 460 240 Meds/Results Medications: Active Medications Generic Name Dose Route Start Last Admin Trade Name Freq PRN Reason Stop Dose Admin Acetaminophen 650 mg 06/17/19 20:19 Tylenol Tablet PO Q6H PRN Pain (Scale Score 1-3) Acetaminophen 1,000 mg 06/20/19 17:00 06/26/19 09:55 Tylenol Tablet PO 1,000 mg TID VERONIQUE Administration Amlodipine Besylate 10 mg 06/18/19 09:00 06/26/19 09:52 Norvasc PO 10 mg DAILY VERONIQUE Administration Colchicine 0.6 mg 06/20/19 21:00 06/26/19 09:52 Colchicine Po PO 0.6 mg Q12HR VERONIQUE Administration Hydrochlorothiazide 25 mg 06/18/19 09:00 06/26/19 09:53 Hydrochlorothiazide PO 25 mg DAILY VERONIQUE Administration Isosorbide Mononitrate 60 mg 06/18/19 09:00 06/26/19 09:53 Imdur PO 60 mg DAILY VERONIUQE Administration Losartan Potassium 100 mg 06/18/19 09:00 06/26/19 09:53 Cozaar PO 100 mg DAILY VERONIQUE Administration Trolamine Salicylate 1 applic 06/18/19 09:00 06/26/19 09:53 Mobisyl TOPICAL 1 applic DAILY VERONIQUE Administration Trolamine Salicylate 1 applic 06/17/19 23:26 Mobisyl TOPICAL PRN PRN FOOT PAIN Radiology Results: ITS Impressions Venous Doppler Study 06/18/19 15:15 IMPRESSION: 1. No lower extremity deep venous thrombosis bilaterally. Foot X-Ray 06/20/19 14:25 IMPRESSION: 1. Cortical erosions at the heads of the right fifth and bilateral first metatarsals and at the base of the right first proximal phalanx which given location and appearance along with the only minimal associated joint space tearing at the metatarsophalangeal joints would favor gout over other inflammatory arthritides. 2. Mild polyarticular osteoarthritis. Foot X-Ray 06/20/19 14:25 IMPRESSION: 1. Cortical erosions at the heads of the right fifth and bilateral first metatarsals and at the base of the right first proximal phalanx which given location and appearance along with the only minimal associated joint space tearing at the metatarsophalangeal joints would favor gout over other inflammatory arthritides. 2. Mild polyarticular osteoarthritis. Knee X-Ray 06/20/19 14:33 IMPRESSION: 1. Large left knee joint effusion and/or synovitis at the suprapatellar pouch. No acute osseous abnormality. Head CT 06/25/19 11:06 IMPRESSION: 1. No acute intracranial findings. 2. Chronic age related findings. 3. Old lacunar infarctions.
[2019-06-26 14:00] VITALS: BP 127/75; PULSE 82; RESP 16; TEMP 36.7; O2SAT 100
[2019-06-26 20:00] VITALS: BP 103/56
[2019-06-26 22:00] VITALS: BP 103/56; PULSE 61; RESP 18; TEMP 36.2; O2SAT 94
[2019-06-27 06:00] VITALS: BP 98/56; PULSE 72; RESP 16; TEMP 36.8; O2SAT 96
[2019-06-27] MEDS: AMLODIPINE BESYLATE 5 MG TABLET 10 MG PO (10:16)
[2019-06-27] MEDS: ACETAMINOPHEN 500 MG TABLET 1000 MG PO ×3 (10:16→18:34)
[2019-06-27] MEDS: COLCHICINE 0.6 MG TABLET PO ×2 (10:17→20:13)
[2019-06-27] MEDS: hydroCHLOROthiazide 25 MG TABLET PO (10:17)
[2019-06-27] MEDS: ISOSORBIDE MONONITRATE 60 MG TAB.ER.24H PO (10:17)
[2019-06-27] MEDS: LOSARTAN POTASSIUM 100 MG TABLET PO (10:17)
[2019-06-27 14:00] VITALS: BP 122/68; PULSE 86; RESP 16; TEMP 36.6; O2SAT 100
[2019-06-27 21:32] VITALS: BP 140/73; PULSE 89; RESP 20; TEMP 36.6; O2SAT 100
[2019-06-28 06:00] VITALS: BP 165/95; PULSE 82; RESP 16; TEMP 36.5; O2SAT 100
[2019-06-28] MEDS: hydroCHLOROthiazide 25 MG TABLET PO (09:02)
[2019-06-28] MEDS: ISOSORBIDE MONONITRATE 60 MG TAB.ER.24H PO (09:02)
[2019-06-28] MEDS: COLCHICINE 0.6 MG TABLET PO ×2 (09:02→21:24)
[2019-06-28] MEDS: AMLODIPINE BESYLATE 5 MG TABLET 10 MG PO (09:02)
[2019-06-28] MEDS: LOSARTAN POTASSIUM 100 MG TABLET PO (09:02)
[2019-06-28] MEDS: ACETAMINOPHEN 500 MG TABLET 1000 MG PO ×3 (09:04→18:34)
[2019-06-28 14:00] VITALS: BP 125/64; PULSE 90; RESP 18; TEMP 36.4; O2SAT 100
[2019-06-28 20:00] VITALS: BP 126/68
[2019-06-28 22:00] VITALS: BP 126/68; PULSE 88; RESP 16; TEMP 37.1; O2SAT 100
[2019-06-29 06:00] VITALS: BP 112/48; PULSE 68; RESP 18; TEMP 36.8; O2SAT 93
[2019-06-29 08:00] VITALS: BP 123/70; PULSE 92; RESP 20; TEMP 36.4; O2SAT 100
[2019-06-29 08:40] VITALS: BP 142/98; PULSE 89
[2019-06-29] MEDS: hydroCHLOROthiazide 25 MG TABLET PO (08:43)
[2019-06-29] MEDS: COLCHICINE 0.6 MG TABLET PO ×2 (08:43→21:11)
[2019-06-29] MEDS: AMLODIPINE BESYLATE 5 MG TABLET 10 MG PO (08:43)
[2019-06-29] MEDS: ISOSORBIDE MONONITRATE 60 MG TAB.ER.24H PO (08:44)
[2019-06-29] MEDS: LOSARTAN POTASSIUM 100 MG TABLET PO (08:44)
[2019-06-29] MEDS: ACETAMINOPHEN 500 MG TABLET 1000 MG PO ×2 (13:30→18:14)
--- NOTE | 2019-06-29 13:47 | WPDNEURORHBP ---
Subjective Date/time seen: 06/29/19 13:47 Interval history: this 79-year-old gentleman is here after having had left thalamic intracranial hemorrhage which has left him with relatively minor speech defect and more moderate right-sided hemiparesis along with both lower extremity weakness from which he is recuperating and needs lot of motivation in fact half the team conference we all agreed that he does have enough potential to make walking happened again he did walk about 129 feet on a on with help of course The patient is doing very well in the rehab provided he gets motivated and do whatever he is told to do so otherwise occasionally he will go up He denies any headache chest pain shortness of breath nausea vomiting abdominal pain and diarrhea fever chills or sore throat Review of Systems Review of Systems: All systems reviewed & are unremarkable except as noted in HPI and below Constitutional: Constitutional: Reports no additional constitutional complaints Eyes: Eyes: Reports no additional eye complaints ENT: Reports system reviewed and no additional complaints, except as documented Cardiovascular: Cardiovascular: Reports no additional cardiovascular complaints Respiratory: Respiratory: Reports no additional respiratory complaints Gastrointestinal: Gastrointestinal: Reports no additional gastrointestinal complaints Genitourinary: Genitourinary: Reports no additional male genitourinary complaints Musculoskeletal: Musculoskeletal: Reports no additional musculoskeletal complaints Integumentary/Breasts: Skin/Breast: Reports system reviewed and no additional complaints, except as docu Neurologic: Comments: patient is speech and language functions are getting normal his relatively more fluent able to comprehend better and express himself better and of course engage in therapy and motivated and counseled and encouraged we will continue the same along with the PT OT and gait training Psychiatric: Psychiatric: Reports no additional psychiatric complaints Functional Status Ambulation Ability Ability to Ambulate 10 Feet: Minimum Assistance X 1 Ability to Ambulate 50 Feet With 2 Turns: Minimum Assistance X 1 Ambulation Assistive Devices: Walker, Wheeled Exam Const: General: comfortable and no acute distress HENMT: General nose exam: Normal nares present Mouth: Yes moist mucous membranes Eyes: General: appearance normal, both eyes and all related structures Neck: Neck: supple and no JVD Resp: Effort & Inspection: normal respiratory effort Auscultation: clear to auscultation bilaterally Cardio: Rate: regular rate Rhythm: regular rhythm GI: GI Palp: Yes Soft to palpation Auscultation: normal bowel sounds Skin: General skin exam: normal color and no rashes or lesions noted Neuro: Other: speech and language functions are getting better clinical examination is pearly decent his right-sided hemiparesis improving and his lower extremity weakness is also improving and he walked after the counseling and encouragement in the team conference to 129 feet Extrem: General: normal to inspection Objective Data Vital Signs Vital Signs: Vital Signs - 24 hr 06/28/19 14:00 06/28/19 20:00 06/28/19 22:00 Temperature 36.4 C 37.1 C Pulse Rate 90 88 Respiratory Rate 18 16 Blood Pressure 125/64 126/68 126/68 Pulse Oximetry 100 100 06/29/19 06:00 06/29/19 08:40 Temperature 36.8 C Pulse Rate 68 89 Respiratory Rate 18 Blood Pressure 112/48 L 142/98 H Pulse Oximetry 93 Intake/Output Intake/Output: Intake & Output 06/26/19 06/27/19 06/28/19 06/29/19 23:59 23:59 23:59 23:59 Intake Total 1080 960 400 120 Balance 1080 960 400 120 Meds/Results Medications: Active Medications Generic Name Dose Route Start Last Admin Trade Name Freq PRN Reason Stop Dose Admin Acetaminophen 650 mg 06/17/19 20:19 Tylenol Tablet PO Q6H PRN Pain (Scale Score 1-3) Acetaminophen 1,000 mg 06/20/19 17:00
[2019-06-29 14:00] VITALS: BP 123/70; PULSE 92; RESP 20; TEMP 36.4; O2SAT 100
--- NOTE | 2019-06-29 14:08 | PCDIET ---
Nutrition Follow-Up Complete: Nutrition Diagnosis: Inadequate energy intake related to weakness and lower appetite as evidenced by family's report of unintentional weight loss of a few pounds. Nutrition Goal: Patient will consume greater than 75% of all meals Goal not met. Patient consumed around 25% of recorded meals on heart healthy diet. Does report taking oral supplements (Ensure Enlive BID, Thrive Ice Cream BID). also brining in some food from home. Patient agreeable to continue supplements. Last recorded weight is 75.4 kg. Recommend obtaining new weight. Bowel Motility: +BM today. Labs Reviewed: Glu (141), BUN (41), Cr (1.9), Hgb (10.6), Hct (33.2) Meds Noted: Hydrochlorothiazide Additional Notes: No documented skin breakdown. Recommend continuing supplements and considering regular diet to promote intake. Will continue to follow with same goals. Nutrition Monitoring and Evaluation: Follow up in 5 days.
[2019-06-29 20:00] VITALS: BP 117/60
[2019-06-29 22:00] VITALS: BP 117/60; PULSE 99; RESP 18; TEMP 36.7; O2SAT 100
[2019-06-30 06:00] VITALS: BP 116/48; PULSE 88; RESP 18; TEMP 36.4; O2SAT 97
[2019-06-30] MEDS: ACETAMINOPHEN 500 MG TABLET 1000 MG PO ×3 (09:01→18:19)
[2019-06-30] MEDS: ISOSORBIDE MONONITRATE 60 MG TAB.ER.24H PO (09:02)
[2019-06-30] MEDS: COLCHICINE 0.6 MG TABLET PO ×2 (09:02→20:33)
[2019-06-30] MEDS: LOSARTAN POTASSIUM 100 MG TABLET PO (09:02)
[2019-06-30] MEDS: hydroCHLOROthiazide 25 MG TABLET PO (09:02)
[2019-06-30] MEDS: AMLODIPINE BESYLATE 5 MG TABLET 10 MG PO (09:02)
--- NOTE | 2019-06-30 12:47 | PCPTNOTE ---
Joey Abebe was evaluated for a wheeled walker on 06/30/2019 by this physical therapist quality assurance assistant. The wheeled walker will resolve patient's mobility limitations and will be used for ADL's within the home. The patient can safely use the wheeled walker. ?The wheeled walker will resolve the patient?s mobility deficits, including decreased endurance, decreased lower extremity strength and decreased balance.
--- NOTE | 2019-06-30 12:48 | PCPTNOTE ---
Beena ACierra Ordoñez PTA completed an inpatient rehab wheelchair evaluation on Joey Abebe on 06/30/2019. The patient is unable to safely and independently ambulate household distances due to their current impairments. Their diagnosis is L Thalamic IPH and their impairments include decreased strength, decreased endurance, decreased range of motion, decreased balance and lower extremity weakness. Monica's weight bearing status is weight-bearing as tolerated on the bilateral lower legs. The patient demonstrates significant functional mobility limitations that impair their ability to participate in mobility-related activities of daily living (MRADLs), including toileting, feeding, dressing, grooming, and bathing in the customary locations in the home. These limitations cannot be sufficiently resolved by the use of an appropriately fitted cane or walker. It is recommended that the patient utilize a wheelchair for functional mobility within the home in order to facilitate optimal safety, independence and participation in all MRADL's and adequately access their home environment on a regular basis. The patient's home provides adequate access between rooms, maneuvering space, and surfaces to accommodate the recommended wheelchair. The use of a wheelchair for functional mobility is strongly recommended and the patient is receptive to using the wheelchair. The use of this wheelchair will significantly improve the patient's ability to participate in MRADLS and the patient will use it on a regular basis in the home. This will facilitate optimal safety, independence, and participation. The patient has demonstrated sufficient physical and mental capabilities needed to safely propel a manual wheelchair that is provided in the home during a typical day. Recommended Wheelchair Frame: standard Recommended Wheelchair Size: 18x18 Recommended Wheelchair Cushion:standard Wheelchair Leg Recommendations: swing away leg rests - Anti-tippers are recommended due to patient demonstrating increased risk for falls. They would benefit from anti-tippers with added safety and stabilization. -Adjustable arm height is recommended because the patient requires an arm height that is different than that which is available using non-adjustable arms. The patient spends at least 2 hours per day in the wheelchair. Beena Ordoñez [employer] 06-30-2019 Evaluating Therapist Date I agree with and certify that the above recommendation is medically necessary. Referring Physician Date I agree with and certify that the above recommendation is medically necessary. Referring Physician Date
[2019-06-30 14:00] VITALS: BP 113/64; PULSE 100; RESP 16; TEMP 36.3; O2SAT 100
--- NOTE | 2019-06-30 14:49 | WPDNEURORHBP ---
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 right-sided hemiparesis and bilateral lower extremity weakness completed gated by the left knee fusion which has been drained by the orthopedic physician on with the Depo-Medrol the patient is much better walked 150 feet and speech and language functions are also getting better along with the generalized weakness he has had no headache no chest pain no shortness of breath no fever no chills throat no abdominal pain diarrhea or vomiting Review of Systems Review of Systems: All systems reviewed & are unremarkable except as noted in HPI and below Functional Status Ambulation Ability Ability to Ambulate 10 Feet: Contact Guard Ability to Ambulate 50 Feet With 2 Turns: Contact Guard Ability to Ambulate 150 Feet: Contact Guard Ambulation Assistive Devices: Walker, Wheeled Exam Const: General: comfortable and no acute distress HENMT: General nose exam: Normal nares present Mouth: Yes moist mucous membranes Eyes: General: appearance normal, both eyes and all related structures Neck: Neck: supple and no JVD Resp: Effort & Inspection: normal respiratory effort Auscultation: clear to auscultation bilaterally Cardio: Rate: regular rate Rhythm: regular rhythm GI: GI Palp: Yes Soft to palpation Auscultation: normal bowel sounds Skin: General skin exam: normal color and no rashes or lesions noted Neuro: Other: is speech and language functions are getting better he is much more cooperative more motivated walked 150 feet the weakness of right side on the bilateral lower extremity weakness have significantly improved comparing to previous several days Extrem: General: normal to inspection Psych: Mental Status: mental status grossly normal Objective Data Vital Signs Vital Signs: Vital Signs - 24 hr 06/29/19 20:00 06/29/19 22:00 06/30/19 06:00 Temperature 36.7 C 36.4 C Pulse Rate 99 88 Respiratory Rate 18 18 Blood Pressure 117/60 117/60 116/48 L Pulse Oximetry 100 97 Intake/Output Intake/Output: Intake & Output 06/27/19 06/28/19 06/29/19 06/30/19 23:59 23:59 23:59 23:59 Intake Total 960 400 240 240 Balance 960 400 240 240 Meds/Results Medications: Active Medications Generic Name Dose Route Start Last Admin Trade Name Freq PRN Reason Stop Dose Admin Acetaminophen 650 mg 06/17/19 20:19 Tylenol Tablet PO Q6H PRN Pain (Scale Score 1-3) Acetaminophen 1,000 mg 06/20/19 17:00 06/30/19 12:42 Tylenol Tablet PO 1,000 mg TID VERONIQUE Administration Amlodipine Besylate 10 mg 06/18/19 09:00 06/30/19 09:02 Norvasc PO 10 mg DAILY VERONIQUE Administration Colchicine 0.6 mg 06/20/19 21:00 06/30/19 09:02 Colchicine Po PO 0.6 mg Q12HR VERONIQUE Administration Hydrochlorothiazide 25 mg 06/18/19 09:00 06/30/19 09:02 Hydrochlorothiazide PO 25 mg DAILY VERONIQUE Administration Isosorbide Mononitrate 60 mg 06/18/19 09:00 06/30/19 09:02 Imdur PO 60 mg DAILY VERONIQUE Administration Losartan Potassium 100 mg 06/18/19 09:00 06/30/19 09:02 Cozaar PO 100 mg DAILY VERONIQUE Administration Trolamine Salicylate 1 applic 06/18/19 09:00 06/30/19 09:02 Mobisyl TOPICAL 1 applic DAILY VERONIQUE Administration Trolamine Salicylate 1 applic 06/17/19 23:26 Mobisyl TOPICAL PRN PRN FOOT PAIN Radiology Results: ITS Impressions Venous Doppler Study 06/18/19 15:15 IMPRESSION: 1. No lower extremity deep venous thrombosis bilaterally. Foot X-Ray 06/20/19 14:25 IMPRESSION: 1. Cortical erosions at the heads of the right fifth and bilateral first metatarsals and at the base of the right first proximal phalanx which given location and appearance along with the only minimal associated joint space tearing at the metatarsophalangeal joints would favor gout over other inflammatory arth
[2019-06-30 21:37] VITALS: BP 120/70; PULSE 87; RESP 16; TEMP 36.7; O2SAT 100
[2019-07-01 06:00] VITALS: BP 142/81; PULSE 80; RESP 16; TEMP 36.6; O2SAT 100
[2019-07-01 08:00] VITALS: PULSE 80; RESP 16; O2SAT 100
[2019-07-01] MEDS: hydroCHLOROthiazide 25 MG TABLET PO (09:49)
[2019-07-01] MEDS: COLCHICINE 0.6 MG TABLET PO ×2 (09:49→20:35)
[2019-07-01] MEDS: AMLODIPINE BESYLATE 5 MG TABLET 10 MG PO (09:50)
[2019-07-01] MEDS: ISOSORBIDE MONONITRATE 60 MG TAB.ER.24H PO (09:50)
[2019-07-01] MEDS: LOSARTAN POTASSIUM 100 MG TABLET PO (09:50)
[2019-07-01] MEDS: ACETAMINOPHEN 500 MG TABLET 1000 MG PO ×3 (09:54→17:31)
--- NOTE | 2019-07-01 11:26 | WPDNEURORHBP ---
Subjective Date/time seen: July 01, 2019 11:26 Interval history: this 79-year-old Afro [place]oth[place] gentleman is here after having had the intracranial hemorrhage with right-sided hemiparesis along with lower extremity weakness all of which are improving and he is walking more than 150 feet however he is not at a point that he could be taken care of by his which I shared with her in detail he probably would need extended care facility at least for the near future The patient denies any headache nausea vomiting chest pain shortness of breath fever chills or sore throat Review of Systems Review of Systems: All systems reviewed & are unremarkable except as noted in HPI and below Functional Status Ambulation Ability Ability to Ambulate 10 Feet: Contact Guard Ability to Ambulate 50 Feet With 2 Turns: Contact Guard Ability to Ambulate 150 Feet: Contact Guard Ambulation Assistive Devices: Walker, Wheeled Exam Const: General: comfortable and no acute distress HENMT: General nose exam: Normal nares present Mouth: Yes moist mucous membranes Eyes: General: appearance normal, both eyes and all related structures Neck: Neck: supple and no JVD Resp: Effort & Inspection: normal respiratory effort Auscultation: clear to auscultation bilaterally Cardio: Rate: regular rate Rhythm: regular rhythm GI: GI Palp: Yes Soft to palpation Auscultation: normal bowel sounds Skin: General skin exam: normal color and no rashes or lesions noted Neuro: Other: patient is awake and alert the speech is improving his able to communicate fairly well much better than he was over a week ago right-sided hemiparesis improving lower extremity pain is improving overall the picture is of significant improvement Extrem: General: normal to inspection Objective Data Vital Signs Vital Signs: Vital Signs - 24 hr 07/01/19 14:00 07/01/19 22:00 07/02/19 06:00 Temperature 36.8 C 36.8 C 36.8 C Pulse Rate 76 89 74 Respiratory Rate 20 20 20 Blood Pressure 148/70 H 115/69 134/86 Pulse Oximetry 96 100 98 Intake/Output Intake/Output: Intake & Output 06/29/19 06/30/19 07/01/19 07/02/19 23:59 23:59 23:59 23:59 Intake Total 240 1190 480 240 Balance 240 1190 480 240 Meds/Results Medications: Active Medications Generic Name Dose Route Start Last Admin Trade Name Freq PRN Reason Stop Dose Admin Acetaminophen 650 mg 06/17/19 20:19 Tylenol Tablet PO Q6H PRN Pain (Scale Score 1-3) Acetaminophen 1,000 mg 06/20/19 17:00 07/02/19 08:48 Tylenol Tablet PO 1,000 mg TID VERONIQUE Administration Amlodipine Besylate 10 mg 06/18/19 09:00 07/02/19 08:45 Norvasc PO 10 mg DAILY VERONIQUE Administration Colchicine 0.6 mg 06/20/19 21:00 07/02/19 08:45 Colchicine Po PO 0.6 mg Q12HR VERONIQUE Administration Hydrochlorothiazide 25 mg 06/18/19 09:00 07/02/19 08:45 Hydrochlorothiazide PO 25 mg DAILY VERONIQUE Administration Isosorbide Mononitrate 60 mg 06/18/19 09:00 07/02/19 08:45 Imdur PO 60 mg DAILY VERONIQUE Administration Losartan Potassium 100 mg 06/18/19 09:00 07/02/19 08:45 Cozaar PO 100 mg DAILY VERONIQUE Administration Trolamine Salicylate 1 applic 06/18/19 09:00 07/02/19 08:45 Mobisyl TOPICAL 1 applic DAILY VERONIQUE Administration Trolamine Salicylate 1 applic 06/17/19 23:26 Mobisyl TOPICAL PRN PRN FOOT PAIN Radiology Results: ITS Impressions Venous Doppler Study 06/18/19 15:15 IMPRESSION: 1. No lower extremity deep venous thrombosis bilaterally. Foot X-Ray 06/20/19 14:25 IMPRESSION: 1. Cortical erosions at the heads of the right fifth and bilateral first metatarsals and at the base of the right first proximal phalanx which given location and appearance along with the only minimal associated joint space tearing at the metatarsophalangeal joints would favor gout over other inflammatory arthritides. 2. Mild polyarticular osteoarthritis. Foot X-Ray 06/20
[2019-07-01 14:00] VITALS: BP 148/70; PULSE 76; RESP 20; TEMP 36.8; O2SAT 96
[2019-07-01 22:00] VITALS: BP 115/69; PULSE 89; RESP 20; TEMP 36.8; O2SAT 100
[2019-07-02 04:54] LABS: Basophils Absolute Auto 0.1 K/mm3 (0.0-0.1); Basophils Percent Auto 0.7 % (0.2-1.2); Eosinophils Absolute Auto 0.2 K/mm3 (0-0.3); Eosinophils Percent Auto 2.3 % (0-4.4); Hematocrit 34.6 % (42.0-52.0); Hemoglobin 10.6 g/dL (14.0-18.0); Immature Granulocyte Absolute 0.03 K/mm3 (0.00-0.031); Immature Granulocyte Percent A 0.4 % (0-0.5); Lymphocytes Absolute Auto 1.95 K/mm3 (0.9-3.2); Lymphocytes Percent Auto 23.6 % (18.3-44.2); Mean Corpuscular HGB Conc 30.6 g/dl (32-36); Mean Corpuscular Hemoglobin 29.4 pg (26-34); Mean Corpuscular Volume 95.8 fl (80-100); Mean Platelet Volume 8.7 fl (7.4-10.4); Monocytes Absolute Auto 0.5 K/mm3 (0.1-0.6); Monocytes Percent Auto 6.3 % (2.6-8.5); Neutrophils Absolute Auto 5.5 K/mm3 (1.3-6.7); Neutrophils Percent Auto 66.7 % (45.5-73.1); Platelet Count Result 409 k/mm3 (150-375); Red Blood Count 3.61 M/mm3 (4.6-6.20); Red Cell Distribution Width 12.6 % (11.5-14.5); White Blood Count 8.3 K/mm3 (4.5-10.0)
[2019-07-02 05:20] LABS: Blood Urea Nitrogen 56 mg/dL (9-20); Calcium 8.8 mg/dL (8.4-10.2); Carbon Dioxide 29 mmol/L (22-30); Chloride 97 mmol/L (98-107); Estimated CRCL calculation 26 ml/min; Estimated Glomerular Filt Rate 35; Glucose 128 mg/dL (75-110); Potassium 4.3 mmol/L (3.4-5.0); Sodium 137 mmol/L (137-145)
[2019-07-02 06:00] VITALS: BP 134/86; PULSE 74; RESP 20; TEMP 36.8; O2SAT 98
[2019-07-02] MEDS: COLCHICINE 0.6 MG TABLET PO (08:45)
[2019-07-02] MEDS: LOSARTAN POTASSIUM 100 MG TABLET PO (08:45)
[2019-07-02] MEDS: hydroCHLOROthiazide 25 MG TABLET PO (08:45)
[2019-07-02] MEDS: AMLODIPINE BESYLATE 5 MG TABLET 10 MG PO (08:45)
[2019-07-02] MEDS: ISOSORBIDE MONONITRATE 60 MG TAB.ER.24H PO (08:45)
[2019-07-02] MEDS: ACETAMINOPHEN 500 MG TABLET 1000 MG PO ×3 (08:48→17:23)
--- NOTE | 2019-07-02 13:12 | PCDIET ---
Nutrition Follow-Up Complete: Inadequate energy intake related to weakness and lower appetite as evidenced by family's report of unintentional weight loss of a few pounds. Pt will consume greater than 75% of all meals Goal not met. Average meal consumption is 24%. Pt states he does like Ensure Enlive and Thrive (BID). Nutrition recommendation: Recommend changing diet order to Regular in order to maximize nutrients provided to pt. Recommend continuation of Enlive and Thrive BID. Last recorded weight is 75.4 kg. Recommend obtaining new weight. Bowel Motility: +BM 06/30 Labs Reviewed: Hgb(10.6), Hct(34.6), Na(137), GFR(35), BUN(56), Cr(2.2), Glu(128) Meds Noted:Norvasc, Colchicine, Imdur, Tylenol Additional Notes: pt states not N/V or abdominal pain. Pt says appetite is so-so , food just doesn't sound good, though he does like theEnlive and Thrive. has been occasionally brining in food to pt. Will monitor labs and intake. Will follow up in 3 days.
[2019-07-02 14:00] VITALS: BP 106/61; PULSE 102; RESP 20; TEMP 36.4; O2SAT 98
--- NOTE | 2019-07-02 14:06 | PCNSR ---
On 07/02/19, the student, Daniella Pope, provided care and completed [facility] documentation on this patient. I have reviewed the student's documentation and agree with the findings.
--- NOTE | 2019-07-02 14:38 | WPDNEURORHBP ---
Subjective Date/time seen: 07/02/19 14:38 Interval history: this 79-year-old Afro [place]ic gentleman is here after having had intracranial hemorrhage which has left him with his speech defect and right more than the left hemiparesis along with bilateral lower extremity weakness from all of that she is improving he denies any headache nausea vomiting chest pain shortness of breath fever chills or sore throat However is not eating as well and drinking not enough which could be responsible for his rising creatinine superimposed on most likely hypertensive and effect of diabetes on his renal function Review of Systems Review of Systems: All systems reviewed & are unremarkable except as noted in HPI and below Functional Status Ambulation Ability Ability to Ambulate 10 Feet: Contact Guard Ability to Ambulate 50 Feet With 2 Turns: Contact Guard Ability to Ambulate 150 Feet: Contact Guard Ambulation Assistive Devices: Walker, Wheeled Exam Const: General: comfortable and no acute distress HENMT: General nose exam: Normal nares present Mouth: Yes moist mucous membranes Eyes: General: appearance normal, both eyes and all related structures Neck: Neck: supple and no JVD Resp: Effort & Inspection: normal respiratory effort Auscultation: clear to auscultation bilaterally Cardio: Rate: regular rate Rhythm: regular rhythm GI: GI Palp: Yes Soft to palpation Auscultation: normal bowel sounds Skin: General skin exam: normal color and no rashes or lesions noted Neuro: Other: patient is awake and alert oriented however clearly has cognitive deficit 10 difficulty in his expression his weakness is improving quite well and engage in therapy Extrem: General: normal to inspection Psych: Other: cognitive deficit however has a normal affect and is neither suicidal or seem to be depressed Objective Data Vital Signs Vital Signs: Vital Signs - 24 hr 07/01/19 22:00 07/02/19 06:00 Temperature 36.8 C 36.8 C Pulse Rate 89 74 Respiratory Rate 20 20 Blood Pressure 115/69 134/86 Pulse Oximetry 100 98 Intake/Output Intake/Output: Intake & Output 06/29/19 06/30/19 07/01/19 07/02/19 23:59 23:59 23:59 23:59 Intake Total 240 1190 480 240 Balance 240 1190 480 240 Meds/Results Medications: Active Medications Generic Name Dose Route Start Last Admin Trade Name Freq PRN Reason Stop Dose Admin Acetaminophen 650 mg 06/17/19 20:19 Tylenol Tablet PO Q6H PRN Pain (Scale Score 1-3) Acetaminophen 1,000 mg 06/20/19 17:00 07/02/19 14:37 Tylenol Tablet PO 1,000 mg TID VERONIQUE Administration Amlodipine Besylate 10 mg 06/18/19 09:00 07/02/19 08:45 Norvasc PO 10 mg DAILY VERONIQUE Administration Colchicine 0.6 mg 07/03/19 09:00 Colchicine Po PO DAILY VERONIQUE Isosorbide Mononitrate 60 mg 06/18/19 09:00 07/02/19 08:45 Imdur PO 60 mg DAILY VERONIQUE Administration Losartan Potassium 100 mg 06/18/19 09:00 07/02/19 08:45 Cozaar PO 100 mg DAILY VERONIQUE Administration Trolamine Salicylate 1 applic 06/18/19 09:00 07/02/19 08:45 Mobisyl TOPICAL 1 applic DAILY VERONIQUE Administration Trolamine Salicylate 1 applic 06/17/19 23:26 Mobisyl TOPICAL PRN PRN FOOT PAIN Radiology Results: ITS Impressions Venous Doppler Study 06/18/19 15:15 IMPRESSION: 1. No lower extremity deep venous thrombosis bilaterally. Foot X-Ray 06/20/19 14:25 IMPRESSION: 1. Cortical erosions at the heads of the right fifth and bilateral first metatarsals and at the base of the right first proximal phalanx which given location and appearance along with the only minimal associated joint space tearing at the metatarsophalangeal joints would favor gout over other inflammatory arthritides. 2. Mild polyarticular osteoarthritis. Foot X-Ray 06/20/19 14:25
[2019-07-02 21:44] VITALS: BP 99/64; PULSE 83; RESP 16; TEMP 36.8; O2SAT 99
[2019-07-03 06:00] VITALS: BP 148/73; PULSE 75; RESP 16; TEMP 36.3; O2SAT 100
[2019-07-03] MEDS: AMLODIPINE BESYLATE 5 MG TABLET 10 MG PO (08:40)
[2019-07-03] MEDS: ACETAMINOPHEN 500 MG TABLET 1000 MG PO (08:40)
[2019-07-03] MEDS: ISOSORBIDE MONONITRATE 60 MG TAB.ER.24H PO (08:41)
[2019-07-03] MEDS: LOSARTAN POTASSIUM 100 MG TABLET PO (08:41)
[2019-07-03] MEDS: COLCHICINE 0.6 MG TABLET PO (08:41)
[2019-07-03 14:00] VITALS: BP 103/64; PULSE 98; RESP 15; TEMP 36.3; O2SAT 99
[2019-07-03 21:18] VITALS: BP 113/64; PULSE 94; RESP 20; TEMP 37; O2SAT 99
[2019-07-04 06:00] VITALS: BP 141/76; PULSE 74; RESP 20; TEMP 36.2; O2SAT 100
[2019-07-04 07:52] VITALS: BP 154/79; PULSE 78; RESP 20; TEMP 36.8; O2SAT 99
[2019-07-04] MEDS: ISOSORBIDE MONONITRATE 60 MG TAB.ER.24H PO (08:59)
[2019-07-04] MEDS: AMLODIPINE BESYLATE 5 MG TABLET 10 MG PO (08:59)
[2019-07-04] MEDS: LOSARTAN POTASSIUM 100 MG TABLET PO (08:59)
[2019-07-04] MEDS: COLCHICINE 0.6 MG TABLET PO (08:59)
--- NOTE | 2019-07-04 13:43 | WPDNEURORHBP ---
Subjective Date/time seen: 07/04/19 13:43 Review of Systems Review of Systems: All systems reviewed & are unremarkable except as noted in HPI and below Functional Status Ambulation Ability Ability to Ambulate 10 Feet: Contact Guard Ability to Ambulate 50 Feet With 2 Turns: Contact Guard Ability to Ambulate 150 Feet: Contact Guard Ambulation Assistive Devices: Walker, Wheeled Transfers Ability Ability to Transfer In/Out of Chair: Moderate Assistance X 1 Exam Const: General: cooperative, comfortable, no acute distress, confusion and tired appearing Orientation/consciousness: oriented to place Eyes: General: appearance normal, both eyes and all related structures Pupils: Equal, round and reactive pupils present Resp: Auscultation: clear to auscultation bilaterally GI: Auscultation: normal bowel sounds Skin: General skin exam: no rashes or lesions noted Neuro: General: oriented to person and moves all extremities Cranial nerves: Yes CN's II-XII intact bilaterally, Yes Equal, round and reactive pupils present, Yes Nystagmus not present, Yes Normal facial strength present, Yes facial symmetry and Yes Midline tongue present Cognition (Neuro): abnormal cognition Speech: Abnormal speech present Gait exam (Neuro): Unable to assess gait Sensory Exam: Sensory deficit (Neuro) Deep tendon reflexes (DTR's): Right triceps reflex intensity grade: 1+, Left triceps reflex intensity grade: 1+, Rt Biceps (C5, C6): 1+, Left biceps reflex intensity grade: 1+, Right brachioradialis reflex intensity grade: 1+, Left brachioradialis reflex intensity grade: 1+, Right patellar reflex intensity grade: 1+, Left patellar reflex intensity grade: 1+, Right ankle reflex intensity grade: 0 and Left ankle reflex intensity grade: 0 Plantar Reflex Responses: downgoing: bilateral Psych: Appearance: disheveled Speech and movement: Slowed speech present (Psych) Affect: Blunted affect present Attitude: cooperative Thought process: Normal thought process present Thought content: Yes Normal thought content present Insight: Limited insight present (Psych) Judgement: Limited judgement present (Psych) Objective Data Vital Signs Vital Signs: Vital Signs - 24 hr 07/03/19 14:00 07/03/19 21:18 07/04/19 06:00 Temperature 36.3 C L 37.0 C 36.2 C L Pulse Rate 98 94 74 Respiratory Rate 15 20 20 Blood Pressure 103/64 113/64 141/76 H Pulse Oximetry 99 99 100 07/04/19 07:52 Temperature 36.8 C Pulse Rate 78 Respiratory Rate 20 Blood Pressure 154/79 H Pulse Oximetry 99 Intake/Output Intake/Output: Intake & Output 07/01/19 07/02/19 07/03/19 07/04/19 23:59 23:59 23:59 23:59 Intake Total 480 1200 315 120 Balance 480 1200 315 120 Meds/Results Medications: Active Medications Generic Name Dose Route Start Last Admin Trade Name Freq PRN Reason Stop Dose Admin Acetaminophen 1,000 mg 07/03/19 10:26 Tylenol Tablet PO TID PRN Pain Amlodipine Besylate 10 mg 06/18/19 09:00 07/04/19 08:59 Norvasc PO 10 mg DAILY VERONIQUE Administration Colchicine 0.6 mg 07/03/19 09:00 07/04/19 08:59 Colchicine Po PO 0.6 mg DAILY VERONIQUE Administration Isosorbide Mononitrate 60 mg 06/18/19 09:00 07/04/19 08:59 Imdur PO 60 mg DAILY VERONIQUE Administration Losartan Potassium 100 mg 06/18/19 09:00 07/04/19 08:59 Cozaar PO 100 mg DAILY VERONIQUE Administration Trolamine Salicylate 1 applic 06/18/19 09:00 07/04/19 08:59 Mobisyl TOPICAL 1 applic DAILY VERONIQUE Administration Trolamine Salicylate 1 applic 06/17/19 23:26 Mobisyl TOPICAL PRN PRN FOOT PAIN Radiology Results: ITS Impressions Venous Doppler Study 06/18/19 15:15 IMPRESSION: 1. No lower extremity deep venous thrombosis bilaterally. Foot X-Ray 06/20/19 14:25 IMPRESSION: 1. Cortical erosions at the heads of the right fifth and bilateral first metatarsals and at the base of the right first proximal phalanx which given location and javi
[2019-07-04 14:34] VITALS: BP 107/55; PULSE 90; RESP 18; TEMP 36.6; O2SAT 100
[2019-07-04 22:00] VITALS: BP 113/64; PULSE 86; RESP 17; TEMP 36.9; O2SAT 100
[2019-07-05 05:08] LABS: Blood Urea Nitrogen 63 mg/dL (9-20); Calcium 8.9 mg/dL (8.4-10.2); Carbon Dioxide 30 mmol/L (22-30); Chloride 97 mmol/L (98-107); Estimated CRCL calculation 27 ml/min; Estimated Glomerular Filt Rate 37; Glucose 140 mg/dL (75-110); Potassium 4.4 mmol/L (3.4-5.0); Sodium 135 mmol/L (137-145)
[2019-07-05 06:00] VITALS: BP 141/80; PULSE 87; RESP 18; TEMP 36.6; O2SAT 100
[2019-07-05] MEDS: ISOSORBIDE MONONITRATE 60 MG TAB.ER.24H PO (09:03)
[2019-07-05] MEDS: LOSARTAN POTASSIUM 100 MG TABLET PO (09:03)
[2019-07-05] MEDS: AMLODIPINE BESYLATE 5 MG TABLET 10 MG PO (09:03)
[2019-07-05] MEDS: COLCHICINE 0.6 MG TABLET PO (09:03)
[2019-07-05 14:00] VITALS: BP 138/76; PULSE 86; RESP 18; TEMP 35.9; O2SAT 97
[2019-07-05 22:00] VITALS: BP 118/72; PULSE 89; RESP 17; TEMP 37.3; O2SAT 99
[2019-07-06 06:00] VITALS: BP 117/64; PULSE 88; RESP 18; TEMP 36.8; O2SAT 100
[2019-07-06] MEDS: ISOSORBIDE MONONITRATE 60 MG TAB.ER.24H PO (07:37)
[2019-07-06] MEDS: LOSARTAN POTASSIUM 100 MG TABLET PO (07:38)
[2019-07-06] MEDS: AMLODIPINE BESYLATE 5 MG TABLET 10 MG PO (07:38)
[2019-07-06] MEDS: COLCHICINE 0.6 MG TABLET PO (07:38)
--- NOTE | 2019-07-06 12:35 | PCDIET ---
Nutrition Follow-Up Complete: Inadequate energy intake related to weakness and lower appetite as evidenced by family's report of unintentional weight loss of a few pounds. Pt will consume greater than 75% of all meals Goal not met. Pt consuming average of 39.5% of meals in addition to supplemental Enlive BID and Thrive BID. Nutrition recommendation: Continuation of Heart Healthy diet order + Enlive BID + Thrive BID to help pt reach nutrition goals. Last recorded weight is 75.4 kg. Recommend new weight be taken. Bowel Motility:+BM Labs Reviewed:Na(135), K(4.4), GFR(37), BUN (28), Cr(1.7), Glu(136) Meds Noted:Norvasc, Cozaar, Mobisyl, colchicine Additional Notes: Talked with pt and , both say pt's appetite is slowly improving. No complaints of GI issues. Noted that renal labs have been altered; nurses encouraging fluid intake and nephrology will be consulted. Will monitor labs and intake. Will follow up in 3 days.
--- NOTE | 2019-07-06 13:56 | PCNSR ---
On 07/06/19, the student, [Daniella Pope ], provided care and completed [facility] documentation on this patient. I have reviewed the student's documentation and agree with the findings.
[2019-07-06 14:00] VITALS: BP 138/62; PULSE 96; RESP 18; TEMP 36.4; O2SAT 100
--- NOTE | 2019-07-06 14:40 | WPDNEURORHBP ---
Subjective Date/time seen: 07/06/19 14:40 Interval history: this 79-year-old a from medical gentleman is here with a diagnosis of left thalamic intracranial hemorrhage with speech defect and right-sided hemiparesis along with bilateral lower extremity weakness. 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 where the creatinine has risen from 1.7 to 2.1 for which I have requested nephrology consult for completeness sake His daughter is planning to have removed to facility in [place] over the weekend The patient is dull doing well and no new complaints have been raised particularly no headache nausea vomiting chest pain or shortness of breath Review of Systems Review of Systems: All systems reviewed & are unremarkable except as noted in HPI and below Functional Status Ambulation Ability Ability to Ambulate 10 Feet: Contact Guard Ability to Ambulate 50 Feet With 2 Turns: Contact Guard Ability to Ambulate 150 Feet: Contact Guard Ambulation Assistive Devices: Walker, Wheeled Transfers Ability Ability to Transfer In/Out of Chair: Moderate Assistance X 1 Exam Const: General: comfortable and no acute distress HENMT: General nose exam: Normal nares present Mouth: Yes moist mucous membranes Eyes: General: appearance normal, both eyes and all related structures Neck: Neck: no JVD Resp: Effort & Inspection: normal respiratory effort Auscultation: clear to auscultation bilaterally Cardio: Rate: regular rate Rhythm: regular rhythm GI: GI Palp: Yes Soft to palpation Auscultation: normal bowel sounds Skin: General skin exam: normal color and no rashes or lesions noted Neuro: Other: patient is awake and alert and well oriented is speech has gotten better right-sided weakness have gotten better the pain in the lower extremities have gotten better overall he has improved quite a bit from the time he came to us Extrem: General: normal to inspection Objective Data Vital Signs Vital Signs: Vital Signs - 24 hr 07/05/19 22:00 07/06/19 06:00 07/06/19 14:00 Temperature 37.3 C 36.8 C 36.4 C Pulse Rate 89 88 96 Respiratory Rate 17 18 18 Blood Pressure 118/72 117/64 138/62 Pulse Oximetry 99 100 100 Intake/Output Intake/Output: Intake & Output 07/03/19 07/04/19 07/05/19 07/06/19 23:59 23:59 23:59 23:59 Intake Total 315 800 720 960 Balance 315 800 720 960 Meds/Results Medications: Active Medications Generic Name Dose Route Start Last Admin Trade Name Freq PRN Reason Stop Dose Admin Acetaminophen 1,000 mg 07/03/19 10:26 Tylenol Tablet PO TID PRN Pain Amlodipine Besylate 10 mg 06/18/19 09:00 07/06/19 07:38 Norvasc PO 10 mg DAILY VERONIQUE Administration Colchicine 0.6 mg 07/03/19 09:00 07/06/19 07:38 Colchicine Po PO 0.6 mg DAILY VERONIQUE Administration Isosorbide Mononitrate 60 mg 06/18/19 09:00 07/06/19 07:37 Imdur PO 60 mg DAILY VERONIQUE Administration Trolamine Salicylate 1 applic 06/18/19 09:00 07/06/19 07:38 Mobisyl TOPICAL 1 applic DAILY VERONIQUE Administration Trolamine Salicylate 1 applic 06/17/19 23:26 Mobisyl TOPICAL PRN PRN FOOT PAIN Radiology Results: ITS Impressions Venous Doppler Study 06/18/19 15:15 IMPRESSION: 1. No lower extremity deep venous thrombosis bilaterally. Foot X-Ray 06/20/19 14:25 IMPRESSION: 1. Cortical erosions at the heads of the right fifth and bilateral first metatarsals and at the base of the right first proximal phalanx which given location and appearance along with the only minimal associated joint space tearing at the metatarsophalangeal joints would favor gout over other inflammatory arthritides. 2. Mild polyarticular osteoarthritis. Foot X-Ray 06/20/19 14:25
[2019-07-06 21:21] VITALS: BP 107/53; PULSE 95; RESP 16; TEMP 36.3; O2SAT 100
[2019-07-07 06:00] VITALS: BP 148/80; PULSE 76; RESP 18; TEMP 36.3; O2SAT 99
[2019-07-07 06:14] LABS: Hematocrit 32.7 % (42.0-52.0); Hemoglobin 10.3 g/dL (14.0-18.0); Mean Corpuscular HGB Conc 31.5 g/dl (32-36); Mean Corpuscular Hemoglobin 29.7 pg (26-34); Mean Corpuscular Volume 94.2 fl (80-100); Mean Platelet Volume 9.1 fl (7.4-10.4); Platelet Count Result 225 k/mm3 (150-375); Red Blood Count 3.47 M/mm3 (4.6-6.20); Red Cell Distribution Width 13.1 % (11.5-14.5); White Blood Count 6.3 K/mm3 (4.5-10.0)
[2019-07-07 06:45] LABS: Albumin Level 3.7 g/dL (3.5-5.1); Blood Urea Nitrogen 57 mg/dL (9-20); Carbon Dioxide 29 mmol/L (22-30); Chloride 99 mmol/L (98-107); Estimated CRCL calculation 27 ml/min; Estimated Glomerular Filt Rate 37; Glucose 135 mg/dL (75-110); Potassium 4.4 mmol/L (3.4-5.0); Sodium 136 mmol/L (137-145)
[2019-07-07 07:12] LABS: Creatinine Urine 62.1 mg/dL
[2019-07-07 07:18] LABS: Sodium Urine Random 69 meq/L
[2019-07-07] MEDS: AMLODIPINE BESYLATE 5 MG TABLET 10 MG PO (08:25)
[2019-07-07] MEDS: ISOSORBIDE MONONITRATE 60 MG TAB.ER.24H PO (08:25)
[2019-07-07 08:45] LABS: Erythrocyte Sedimentation Rate 53 mm/hr (0-20)
[2019-07-07 10:11] LABS: Creatine Kinase 45 U/L (55-170)
--- NOTE | 2019-07-07 10:26 | WPDNEURORHBP ---
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 and right-sided hemiparesis along with the lower extremity weakness along with left-sided knee fusion which was drained and relatively rising creatinine which is most likely related to his underlying diabetes and hypertension a consultation from the striper has been sought The patient denies any headache nausea vomiting chest pain shortness of breath fever chills or sore throat Review of Systems Review of Systems: All systems reviewed & are unremarkable except as noted in HPI and below Functional Status Ambulation Ability Ability to Ambulate 10 Feet: Contact Guard Ability to Ambulate 50 Feet With 2 Turns: Contact Guard Ability to Ambulate 150 Feet: Contact Guard Ambulation Assistive Devices: Walker, Wheeled Transfers Ability Ability to Transfer In/Out of Chair: Moderate Assistance X 1 Exam Const: General: no acute distress and in distress HENMT: General nose exam: Normal nares present Mouth: Yes moist mucous membranes Eyes: General: appearance normal, both eyes and all related structures Neck: Neck: supple and no JVD Resp: Effort & Inspection: normal respiratory effort Auscultation: clear to auscultation bilaterally Cardio: Rate: regular rate Rhythm: regular rhythm GI: GI Palp: Yes Soft to palpation Auscultation: normal bowel sounds Skin: General skin exam: normal color and no rashes or lesions noted Neuro: Other: patient does have speech defect cognitive deficit and decreased memory however is motor deficit has improved and his walking quite a bit Extrem: General: normal to inspection Psych: Other: patient is neither depressed or belligerent however he does have cognitive deficit as mentioned above Objective Data Vital Signs Vital Signs: Vital Signs - 24 hr 07/06/19 14:00 07/06/19 21:21 07/07/19 06:00 Temperature 36.4 C 36.3 C L 36.3 C L Pulse Rate 96 95 76 Respiratory Rate 18 16 18 Blood Pressure 138/62 107/53 L 148/80 H Pulse Oximetry 100 100 99 Intake/Output Intake/Output: Intake & Output 07/04/19 07/05/19 07/06/19 07/07/19 23:59 23:59 23:59 23:59 Intake Total 672 378 8301 50 Balance 957 294 0085 50 Meds/Results Medications: Active Medications Generic Name Dose Route Start Last Admin Trade Name Freq PRN Reason Stop Dose Admin Acetaminophen 1,000 mg 07/03/19 10:26 Tylenol Tablet PO TID PRN Pain Amlodipine Besylate 10 mg 06/18/19 09:00 07/07/19 08:25 Norvasc PO 10 mg DAILY VERONIQUE Administration Isosorbide Mononitrate 60 mg 06/18/19 09:00 07/07/19 08:25 Imdur PO 60 mg DAILY VERONIQUE Administration Trolamine Salicylate 1 applic 06/18/19 09:00 07/07/19 08:26 Mobisyl TOPICAL 1 applic DAILY VERONIQUE Administration Trolamine Salicylate 1 applic 06/17/19 23:26 Mobisyl TOPICAL PRN PRN FOOT PAIN Radiology Results: ITS Impressions Venous Doppler Study 06/18/19 15:15 IMPRESSION: 1. No lower extremity deep venous thrombosis bilaterally. Foot X-Ray 06/20/19 14:25 IMPRESSION: 1. Cortical erosions at the heads of the right fifth and bilateral first metatarsals and at the base of the right first proximal phalanx which given location and appearance along with the only minimal associated joint space tearing at the metatarsophalangeal joints would favor gout over other inflammatory arthritides. 2. Mild polyarticular osteoarthritis. Foot X-Ray 06/20/19 14:25
[2019-07-07 11:31] LABS: Complement C3 119 mg/dL (88-165)
[2019-07-07 14:00] VITALS: BP 139/78; PULSE 77; RESP 18; TEMP 36.7; O2SAT 99
--- NOTE | 2019-07-07 16:01 | PM.CNNEP ---
Assessment and Plan Assessment and plan (1) Renal insufficiency: Code(s): N28.9 - Disorder of kidney and ureter, unspecified Status: Acute Assessment and Plan: This patient has chronic kidney disease. His creatinine was elevated on admission. He likely has disease from diabetes and hypertension. We will evaluate this with serology and immunofixation. He also had an ultrasound of his kidneys which showed smallish kidneys and 1 renal cyst. He also has acute kidney injury superimposed. He has not received contrast. He is not on diuretics. Possibly he is not eating as well as he should. I encouraged p.o. intake. We will get urine electrolytes and eosinophils. (2) Hypertension: Code(s): I10 - Essential (primary) hypertension Status: Acute Assessment and Plan: (3) Right hemiparesis: Code(s): G81.91 - Hemiplegia, unspecified affecting right dominant side Status: Acute Assessment and Plan: He had a brain bleed. (4) Intracranial hemorrhage: Code(s): I62.9 - Nontraumatic intracranial hemorrhage, unspecified Status: Acute Assessment and Plan: Things are stable in this department (5) Diabetes mellitus: Code(s): E11.9 - Type 2 diabetes mellitus without complications Status: Acute Assessment and Plan: He is on Accu-Cheks and sliding-scale insulin History of Present Illness Reason for Consult Consult date: 07/07/19 Chief Complaint Chief complaint: L Thalamic IPH History of Present Illness Narrative: Joey is a very pleasant 79-year-old gentleman who has multiple medical problems including hypertension, hyperlipidemia. He recently had a headache an intercerebral hemorrhage. He was admitted to the hospital and treated supportively. Patient was left with right hemiparesis and aphasia. He recovered some neurologically but was still weak so was transferred to acute rehab here at [facility]. On admission his creatinine was 1.7. His creatinine tashi to 2.2 a few days ago and now is 2.1. Renal consultation was requested. The patient says he is not thirsty. He is eating and drinking well according to the nurses. He is making urine. He denies any rash. He has no itching. No bloody urine, foamy urine, kidney stones, or bladder infections.He is not on diuretics. He was on diuretics on admission however these were stopped. Review of Systems Constitutional: Constitutional: Reports no additional constitutional complaints Eyes: Eyes: Reports no additional eye complaints ENT: Reports system reviewed and no additional complaints, except as documented Cardiovascular: Cardiovascular: Reports no additional cardiovascular complaints Respiratory: Respiratory: Reports no additional respiratory complaints Gastrointestinal: Gastrointestinal: Reports no additional gastrointestinal complaints Genitourinary: Genitourinary: Reports no additional male genitourinary complaints Musculoskeletal: Musculoskeletal: Reports no additional musculoskeletal complaints Integumentary/Breasts: Skin/Breast: Reports system reviewed and no additional complaints, except as docu Neurologic: Reports system reviewed and no additional complaints, except as documented Psychiatric: Psychiatric: Reports no additional psychiatric complaints PMFSH Past Medical History Medical History Diabetes mellitus Hyperlipidemia Hypertension Knee effusion, left Renal insufficiency Family History Family History Mother Diabetes mellitus Social History Social History Smoking packs per day: 1 Smoking cigarettes per day: 20.0 Years smoked: 30 Smoking pack-years: 30.00 Smoking status: Former smoker Tobacco type: cigarettes Alcohol intake: never Substance use: never Gender identity (if verba
[2019-07-07 21:53] VITALS: BP 131/76; PULSE 84; RESP 20; TEMP 36.8; O2SAT 100
[2019-07-08 06:00] VITALS: BP 142/73; PULSE 75; RESP 16; TEMP 36.7; O2SAT 100
[2019-07-08] MEDS: AMLODIPINE BESYLATE 5 MG TABLET 10 MG PO (07:57)
[2019-07-08] MEDS: ISOSORBIDE MONONITRATE 60 MG TAB.ER.24H PO (07:57)
[2019-07-08 10:16] LABS: Creatinine Urine 69.1 mg/dL; Total Protein Urine Random 13 mg/dL
[2019-07-08 10:21] LABS: Add Urine Microscopic? YES; Appearance Urine Clear (Clear); Bilirubin Urine Negative (Negative); Blood Urine Negative (Negative); Color Urine Straw (Yellow); Glucose Urine UA Negative (Negative); Ketones Urine Negative (Negative); Leukocyte Esterase Ur Negative LEU/UL (NEGATIVE); Nitrate Urine Negative (Negative); Protein Urine Negative (Negative); RBC Urine 0-2 /hpf (0-2); Specific Grav Ur 1.013 (1.001-1.035); Urobilinogen Urine Negative mg/dL (<2.0); WBC Urine 0-3 /hpf (0-3)
--- NOTE | 2019-07-08 11:21 | WPDNEURORHBP ---
Subjective Date/time seen: 07/08/19 11:21 Interval history: this 79-year-old gentleman is here after having had left sided intraparenchymal hemorrhage which has left him with speech defect cognitive deficit and right-sided hemiparesis along with bilateral low lower extremity weakness he has improved quite a bit however still continues to need assistance in the activities of daily living the patient also has chronic renal disease related to diabetes and hypertension for which the tobacco flavorer has seen him the notes were reviewed and concurred the patient blood pressure is relatively on the high side which is due to the fact that I have discontinued his diuretics and that needs to be observed further whenever is goes to assisted living facility in the next few days or so The patient denies any headache nausea vomiting chest pain or shortness of breath Review of Systems Review of Systems: All systems reviewed & are unremarkable except as noted in HPI and below Functional Status Ambulation Ability Ability to Ambulate 10 Feet: Contact Guard Ability to Ambulate 50 Feet With 2 Turns: Contact Guard Ability to Ambulate 150 Feet: Contact Guard Ambulation Assistive Devices: Walker, Wheeled Transfers Ability Ability to Transfer In/Out of Chair: Minimum Assistance X 1 Exam Const: General: comfortable and no acute distress HENMT: General nose exam: Normal nares present Mouth: Yes moist mucous membranes Eyes: General: appearance normal, both eyes and all related structures Neck: Neck: supple and no JVD Resp: Effort & Inspection: normal respiratory effort Auscultation: clear to auscultation bilaterally Cardio: Rate: regular rate Rhythm: regular rhythm GI: GI Palp: Yes Soft to palpation Auscultation: normal bowel sounds Skin: General skin exam: normal color and no rashes or lesions noted Neuro: Other: patient is awake and alert partially oriented with improved speech and improved right-sided hemiparesis however still needing assistance in the all the activities of daily living Extrem: General: normal to inspection Psych: Mental Status: mental status grossly normal Objective Data Vital Signs Vital Signs: Vital Signs - 24 hr 07/07/19 14:00 07/07/19 21:53 07/08/19 06:00 Temperature 36.7 C 36.8 C 36.7 C Pulse Rate 77 84 75 Respiratory Rate 18 20 16 Blood Pressure 139/78 131/76 142/73 H Pulse Oximetry 99 100 100 Intake/Output Intake/Output: Intake & Output 07/05/19 07/06/19 07/07/19/05/20 23:59 23:59 23:59 23:59 Intake Total 720 1020 590 240 Balance 720 1020 590 240 Meds/Results Medications: Active Medications Generic Name Dose Route Start Last Admin Trade Name Freq PRN Reason Stop Dose Admin Acetaminophen 1,000 mg 07/03/19 10:26 Tylenol Tablet PO TID PRN Pain Amlodipine Besylate 10 mg 06/18/19 09:00 07/08/19 07:57 Norvasc PO 10 mg DAILY VERONIQUE Administration Isosorbide Mononitrate 60 mg 06/18/19 09:00 07/08/19 07:57 Imdur PO 60 mg DAILY VERONIQUE Administration Trolamine Salicylate 1 applic 06/18/19 09:00 07/08/19 07:58 Mobisyl TOPICAL 1 applic DAILY VERONIQUE Administration Trolamine Salicylate 1 applic 06/17/19 23:26 Mobisyl TOPICAL PRN PRN FOOT PAIN Radiology Results: ITS Impressions Venous Doppler Study 06/18/19 15:15 IMPRESSION: 1. No lower extremity deep venous thrombosis bilaterally. Foot X-Ray 06/20/19 14:25 IMPRESSION: 1. Cortical erosions at the heads of the right fifth and bilateral first metatarsals and at the base of the right first proximal phalanx which given location and appearance along with the only minimal associated joint space tearing at the metatarsophalangeal joints would favor gout over other inflammatory arthritides. 2. Mild polyarticular osteoarthritis. Foot X-Ray 06/20/19 14:25
--- NOTE | 2019-07-08 11:46 | PM.PNNEP ---
Progress Note: A&P Assessment and Plan (1) Chronic kidney disease, stage 3: Code(s): N18.3 - Chronic kidney disease, stage 3 (moderate) Status: Acute Assessment and Plan: from review of records at [facility]: - creatinine was around 1.4mg/dl in 2018 - during hospital stay, creatinine fluctuated ~ 1.6 - 2.1mg/dl etiology most likely due to HTN, DM, vascular disease, and age-related change evaluation to date: - normal renal ultrasound (kidneys are 9.1cm bilaterally) - normal complements and negative urine eosinophils - non-renal urine electrolytes - ~ 188mg of proteinuria - rest of serological studies pending continue to follow (2) Hypertension: Code(s): I10 - Essential (primary) hypertension Status: Acute Assessment and Plan: reasonable control at this time follow trend of hemodynamics (3) Diabetes mellitus: Code(s): E11.9 - Type 2 diabetes mellitus without complications Status: Acute Assessment and Plan: follow accuchecks not currently on any medications? check A1c (4) Intracranial hemorrhage: Code(s): I62.9 - Nontraumatic intracranial hemorrhage, unspecified Status: Acute Assessment and Plan: PT/OT/rehab as tolerated continue supportive therapy Will continue to follow Subjective Date/time seen: 07/08/19 11:46 Appears to be doing reasonably well at the time of my visit; no apparent distress and no issues overnight or this AM to report; continues to work with PT/OT as tolerated; making progress in general. Exam Narrative: Exam Narrative: General: WD/WN AA male in NAD Heart: normal S1 and S2; no rub Lungs: clear to auscultation Abdomen: soft, nontender, nondistended, positive bowel sounds Extremities: no cyanosis or clubbing; no edema Skin: warm and dry Objective Data Vital Signs Vital Signs: Vital Signs Temp Pulse Resp BP Pulse Ox 07/08/19 06:00 36.7 C 75 16 142/73 H 100 07/07/19 21:53 36.8 C 84 20 131/76 100 07/07/19 14:00 36.7 C 77 18 139/78 99 Intake/Output Intake/Output: Intake & Output 07/05/19 07/06/19 07/07/19 07/08/19 23:59 23:59 23:59 23:59 Intake Total 720 1020 590 240 Balance 720 1020 590 240 Meds/Results Medications: Active Medications Generic Name Dose Route Start Last Admin Trade Name Freq PRN Reason Stop Dose Admin Acetaminophen 1,000 mg 07/03/19 10:26 Tylenol Tablet PO TID PRN Pain Amlodipine Besylate 10 mg 06/18/19 09:00 07/08/19 07:57 Norvasc PO 10 mg DAILY VERONIQUE Administration Isosorbide Mononitrate 60 mg 06/18/19 09:00 07/08/19 07:57 Imdur PO 60 mg DAILY VERONIQUE Administration Trolamine Salicylate 1 applic 06/18/19 09:00 07/08/19 07:58 Mobisyl TOPICAL 1 applic DAILY VERONIQUE Administration Trolamine Salicylate 1 applic 06/17/19 23:26 Mobisyl TOPICAL PRN PRN FOOT PAIN Radiology Results: ITS Impressions Venous Doppler Study 06/18/19 15:15 IMPRESSION: 1. No lower extremity deep venous thrombosis bilaterally. Foot X-Ray 06/20/19 14:25 IMPRESSION: 1. Cortical erosions at the heads of the right fifth and bilateral first metatarsals and at the base of the right first proximal phalanx which given location and appearance along with the only minimal associated joint space tearing at the metatarsophalangeal joints would favor gout over other inflammatory arthritides. 2. Mild polyarticular osteoarthritis. Foot X-Ray 06/20/19 14:25 IMPRESSION: 1. Cortical erosions at the heads of the right fifth and bilateral first metatarsals and at the base of the right first proximal phalanx which given location and appearance along with the only minimal associated joint space tearing at the metatarsophalangeal joints would favor gout over other inflammatory arthritides. 2. Mild polyarticular osteoarthritis. Knee X-Ray 06/20/19 14:33 CARLAE
--- NOTE | 2019-07-08 13:35 | PC.NURSE ---
please edit pts flu shot was put in incorrectly as January 2020 and should have been 2019.
[2019-07-08 14:00] VITALS: BP 134/72; PULSE 90; RESP 18; TEMP 36.4; O2SAT 100
[2019-07-08 22:00] VITALS: BP 124/69; PULSE 88; RESP 20; TEMP 37.1; O2SAT 100
[2019-07-09 05:27] LABS: Basophils Percent Auto 0.4 % (0.2-1.2); Eosinophils Absolute Auto 0.1 K/mm3 (0-0.3); Eosinophils Percent Auto 1.9 % (0-4.4); Hematocrit 31.8 % (42.0-52.0); Immature Granulocyte Absolute 0.02 K/mm3 (0.00-0.031); Immature Granulocyte Percent A 0.3 % (0-0.5); Lymphocytes Absolute Auto 1.47 K/mm3 (0.9-3.2); Lymphocytes Percent Auto 20.4 % (18.3-44.2); Mean Corpuscular HGB Conc 31.4 g/dl (32-36); Mean Corpuscular Hemoglobin 29.9 pg (26-34); Mean Corpuscular Volume 94.9 fl (80-100); Mean Platelet Volume 10.2 fl (7.4-10.4); Monocytes Absolute Auto 0.5 K/mm3 (0.1-0.6); Monocytes Percent Auto 7.1 % (2.6-8.5); Neutrophils Percent Auto 69.9 % (45.5-73.1); Platelet Count Result 188 k/mm3 (150-375); Red Blood Count 3.35 M/mm3 (4.6-6.20); Red Cell Distribution Width 13.1 % (11.5-14.5); White Blood Count 7.2 K/mm3 (4.5-10.0)
[2019-07-09 05:52] LABS: Blood Urea Nitrogen 51 mg/dL (9-20); Calcium 9.4 mg/dL (8.4-10.2); Carbon Dioxide 31 mmol/L (22-30); Chloride 98 mmol/L (98-107); Estimated CRCL calculation 29 ml/min; Estimated Glomerular Filt Rate 39; Glucose 151 mg/dL (75-110); Potassium 4.5 mmol/L (3.4-5.0); Sodium 136 mmol/L (137-145)
[2019-07-09 06:00] VITALS: BP 163/79; PULSE 75; RESP 20; TEMP 36.4; O2SAT 100
[2019-07-09] MEDS: AMLODIPINE BESYLATE 5 MG TABLET 10 MG PO (08:24)
[2019-07-09] MEDS: ISOSORBIDE MONONITRATE 60 MG TAB.ER.24H PO (08:24)
[2019-07-09 08:27] VITALS: BP 151/68; PULSE 81
--- NOTE | 2019-07-09 11:56 | WPDNEURORHBP ---
Subjective Date/time seen: 07/09/19 11:56 Interval history: this 79-year-old Afro-Filipino gentleman is here after having had left hemispheric intracranial hemorrhage which has left him with the speech defect and right-sided hemiparesis along with the cognitive deficit from which he has improved however still needs assistance the family has planned for him to go to detention facility in [place] and he will be discharged tomorrow the patient has been followed by the washing machine striper from for his care chronic kidney disease which is related to diabetes and hypertension their notes were reviewed The patient denies any headache nausea vomiting chest pain and shortness of breath fever chills or sore throat Review of Systems Review of Systems: All systems reviewed & are unremarkable except as noted in HPI and below Functional Status Ambulation Ability Ability to Ambulate 10 Feet: Contact Guard Ability to Ambulate 50 Feet With 2 Turns: Contact Guard Ability to Ambulate 150 Feet: Contact Guard Ambulation Assistive Devices: Walker, Wheeled Transfers Ability Ability to Transfer In/Out of Chair: Minimum Assistance X 1 Exam Const: General: comfortable and no acute distress HENMT: General nose exam: Normal nares present Mouth: Yes moist mucous membranes Eyes: General: appearance normal, both eyes and all related structures Neck: Neck: supple and no JVD Resp: Effort & Inspection: normal respiratory effort Auscultation: clear to auscultation bilaterally Cardio: Rate: regular rate Rhythm: regular rhythm GI: GI Palp: Yes Soft to palpation Auscultation: normal bowel sounds Skin: General skin exam: normal color and no rashes or lesions noted Neuro: Other: patient is awake and alert partially oriented with some speech defect which clearly has improved from the time he came to us the right-sided hemiparesis has improved his aches and pains have also improved overall he has done very well however is still remains with the cognitive memory deficit and speech defect and of course right-sided weakness hampering the activities of daily living Extrem: General: normal to inspection Objective Data Vital Signs Vital Signs: Vital Signs - 24 hr 07/08/19 14:00 07/08/19 22:00 07/09/19 06:00 Temperature 36.4 C 37.1 C 36.4 C Pulse Rate 90 88 75 Respiratory Rate 18 20 20 Blood Pressure 134/72 124/69 163/79 H Pulse Oximetry 100 100 100 07/09/19 08:27 Temperature Pulse Rate 81 Respiratory Rate Blood Pressure 151/68 H Pulse Oximetry Intake/Output Intake/Output: Intake & Output 07/06/19 07/07/19 07/08/19 07/09/19 23:59 23:59 23:59 23:59 Intake Total 1020 590 840 240 Balance 1020 590 840 240 Meds/Results Medications: Active Medications Generic Name Dose Route Start Last Admin Trade Name Freq PRN Reason Stop Dose Admin Acetaminophen 1,000 mg 07/03/19 10:26 Tylenol Tablet PO TID PRN Pain Amlodipine Besylate 10 mg 06/18/19 09:00 07/09/19 08:24 Norvasc PO 10 mg DAILY VERONIQUE Administration Isosorbide Mononitrate 60 mg 06/18/19 09:00 07/09/19 08:24 Imdur PO 60 mg DAILY VERONIQUE Administration Trolamine Salicylate 1 applic 06/18/19 09:00 07/09/19 08:25 Mobisyl TOPICAL Not Given DAILY VERONIQUE Trolamine Salicylate 1 applic 06/17/19 23:26 Mobisyl TOPICAL PRN PRN FOOT PAIN Radiology Results: ITS Impressions Venous Doppler Study 06/18/19 15:15 IMPRESSION: 1. No lower extremity deep venous thrombosis bilaterally. Foot X-Ray 06/20/19 14:25 IMPRESSION: 1. Cortical erosions at the heads of the right fifth and bilateral first metatarsals and at the base of the right first proximal phalanx which given location and appearance along with the only minimal associated joint space tearing at the metatarsophalangeal joints would favor gout over other inflammatory arthritides. 2. Mild polyarticular osteoarthritis. Foot X-Ray 06/20/19 14:25 IMPRESSION: 1. Co
--- NOTE | 2019-07-09 13:51 | PCDIET ---
Nutrition Follow-Up Complete: Nutrition Diagnosis: Inadequate energy intake related to weakness and lower appetite as evidenced by family's report of unintentional weight loss of a few pounds. Nutrition Goal: Patient will consume greater than 75% of all meals Goal in progress. Average intake was ~50% from 07/06/19; however, patient is taking Thrive BID and Ensure Enlive BID, thereby likely meeting nutritional needs. Last recorded weight is 75.4 kg. Recommend obtaining new weight. Bowel Motility: Last documented bowel movement on 07/06/19 x 2. Labs Reviewed: Glu (151), BUN (51), Cr (2.0), Na (136), Hgb (10.0), Hct (31.8) Meds Noted: Norvasc, Imdur Additional Notes: No documented skin breakdown. Recommend continuing heart healthy diet with supplements. Nutrition Monitoring and Evaluation: Follow up in 5 days.
[2019-07-09 14:00] VITALS: BP 123/67; PULSE 102; RESP 18; TEMP 36.6; O2SAT 99
--- NOTE | 2019-07-09 15:20 | PM.PNNEP ---
Progress Note: A&P Assessment and Plan (1) Chronic kidney disease, stage 3: Code(s): N18.3 - Chronic kidney disease, stage 3 (moderate) Status: Acute Assessment and Plan: from review of records at [facility]: - creatinine was around 1.4mg/dl in 2018 - during hospital stay, creatinine fluctuated ~ 1.6 - 2.1mg/dl etiology most likely due to HTN, DM, vascular disease, and age-related change evaluation to date: - normal renal ultrasound (kidneys are 9.1cm bilaterally) - normal complements and negative urine eosinophils - non-renal urine electrolytes - ~ 188mg of proteinuria - rest of serological studies pending continue to follow (2) Hypertension: Code(s): I10 - Essential (primary) hypertension Status: Acute Assessment and Plan: reasonable control at this time follow trend of hemodynamics (3) Diabetes mellitus: Code(s): E11.9 - Type 2 diabetes mellitus without complications Status: Acute Assessment and Plan: follow accuchecks not currently on any medications? check A1c (4) Intracranial hemorrhage: Code(s): I62.9 - Nontraumatic intracranial hemorrhage, unspecified Status: Acute Assessment and Plan: PT/OT/rehab as tolerated continue supportive therapy Will continue to follow -- not opposed to discharge tomorrow from renal perspective. Subjective Date/time seen: 07/09/19 15:20 Seems to be doing reasonably well; no apparent issues or concerns voiced at this time; noted plans for discharge to facility in [place] to closer to family/daughter. Exam Narrative: Exam Narrative: General: WD/WN AA male in NAD Heart: normal S1 and S2; no rub Lungs: clear to auscultation Abdomen: soft, nontender, nondistended, positive bowel sounds Extremities: no cyanosis or clubbing; no edema Skin: warm and dry Objective Data Vital Signs Vital Signs: Vital Signs Temp Pulse Resp BP Pulse Ox 07/09/19 14:00 36.6 C 102 H 18 123/67 99 07/09/19 08:27 81 151/68 H 07/09/19 06:00 36.4 C 75 20 163/79 H 100 07/08/19 22:00 37.1 C 88 20 124/69 100 n Intake/Output Intake/Output: Intake & Output 07/06/19 07/07/19 07/08/19/06/20 23:59 23:59 23:59 23:59 Intake Total 1020 590 840 480 Balance 1020 590 840 480 Meds/Results Medications: Active Medications Generic Name Dose Route Start Last Admin Trade Name Freq PRN Reason Stop Dose Admin Acetaminophen 1,000 mg 07/03/19 10:26 Tylenol Tablet PO TID PRN Pain Amlodipine Besylate 10 mg 06/18/19 09:00 07/09/19 08:24 Norvasc PO 10 mg DAILY VERONIQUE Administration Isosorbide Mononitrate 60 mg 06/18/19 09:00 07/09/19 08:24 Imdur PO 60 mg DAILY VERONIQUE Administration Trolamine Salicylate 1 applic 06/18/19 09:00 07/09/19 08:25 Mobisyl TOPICAL Not Given DAILY VERONIQUE Trolamine Salicylate 1 applic 06/17/19 23:26 Mobisyl TOPICAL PRN PRN FOOT PAIN Radiology Results: ITS Impressions Venous Doppler Study 06/18/19 15:15 IMPRESSION: 1. No lower extremity deep venous thrombosis bilaterally. Foot X-Ray 06/20/19 14:25 IMPRESSION: 1. Cortical erosions at the heads of the right fifth and bilateral first metatarsals and at the base of the right first proximal phalanx which given location and appearance along with the only minimal associated joint space tearing at the metatarsophalangeal joints would favor gout over other inflammatory arthritides. 2. Mild polyarticular osteoarthritis. Foot X-Ray 06/20/19 14:25
[2019-07-09 22:00] VITALS: BP 117/65; PULSE 101; RESP 18; TEMP 37; O2SAT 100
[2019-07-10 06:00] VITALS: BP 131/82; PULSE 92; RESP 18; TEMP 36.4; O2SAT 100
[2019-07-10] MEDS: AMLODIPINE BESYLATE 5 MG TABLET 10 MG PO (10:14)
[2019-07-10] MEDS: ISOSORBIDE MONONITRATE 60 MG TAB.ER.24H PO (10:15)
[2019-07-10 12:11] LABS: Complement Total CH50 >60 U/mL (31-60)
[2019-07-10 14:00] VITALS: BP 126/68; PULSE 95; RESP 20; TEMP 36.3; O2SAT 98
[2019-07-14 00:39] LABS: Kappa\\Lambda Light Chains 2.58 (0.26-1.65); Lambda Light Chain 32.9 mg/L (5.7-26.3)
--- NOTE | 2019-07-16 06:23 | DS_ITS ---
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 DISCHARGE ACTIVE COMORBID CONDITIONS: 1. History of left hip surgery. 2. Diabetes mellitus. 3. Hypertension. 4. Hyperlipidemia. REASON FOR ADMISSION: 79-year-old with past medical history of diabetes, hypertension, hyperlipidemia, presented to primary care physician on 06/10/2019, with lower extremity weakness along with bladder dysfunction. He was sent to the emergency room at [facility] on the same day by the PMD where his blood pressure was recorded 206/100. He received IV labetalol in the ER. CT of the head documented 1.4 x 1.2 cm density in the left basal ganglia consistent with the hemorrhage. Chest x-ray was negative. Troponins were elevated. EKG revealed first-degree AV block with T-wave changes of nonspecific nature. UA was negative except the protein. Neurosurgical Service was consulted. He was admitted to ICU on nicardipine drip. MRI of the brain conformed the hemorrhage in the left thalamus along with the surrounding edema and mass effect of the 3rd ventricle along with the possibility of recent infarct adjacent to the left splenium of the corpus callosum. The nicardipine drip was stopped overnight on 06/11/2019. At that time, his blood pressure was at goal. It was restarted on 06/24, and then he was changed over to oral home antihypertensive medication including amlodipine, hydralazine, Imdur, and losartan. His hypertensive encephalopathy completely resolved. Creatinine was elevated to 1.6 on 06/13/2019, most likely related to chronic kidney disease in the setting of diabetes, hypertension. Hemoglobin was stable and A1c was 6.3. He passed a swallowing test on general diet. Continued to have the right-sided weakness, impaired balance, and gross motor control deficiency along with speech defect. LEVEL OF FUNCTION AT THE TIME OF ADMISSION: He required partial assistance for eating, supervision for oral hygiene, dependent for toileting, substantial assistance for bathing, partial assistance for upper body dressing, dependent for lower body dressing, footwear, rolling in bed, sit to lying, lying to sit, sit to stand, chair transfer, toilet transfer. He was unable to car transfer, walking 10 feet or 50 feet on 2 turns, 150 feet, walking 10 feet on uneven surfaces, curb or step, 4 steps, 12 steps, picking up object, or taking the wheelchair. ANTICIPATED REHAB GOALS: At the time of admission were to make him independent eating and oral hygiene, required only partial assistance for toileting and bathing, lower body dressing and footwear, required setup for upper body dressing, required only supervision for rolling in bed sit to lying, lying to sitting, sit to stand, chair transfer, and car transfer, required partial assistance for toilet transfer, 10 feet walking, 50 feet walking with 2 turns, 10 feet walking on uneven surfaces, curb or step, and picking up object, require only supervision for the car transfer. He is still dependent for walking 150 feet, 4 steps, 12 steps on uneven places, and required only setup for the wheelchair. LEVEL OF FUNCTION AT THE TIME OF DISCHARGE: The patient became independent in eating, required only setup for the oral hygiene, supervision for toileting, partial assistance for bathing, setup for upper body dressing, partial assistance for lower body dressing, supervision for footwear, independent for rolling in bed, supervision for sit to lying, lying to sitting, sit to stand, chair transfer, toilet transfer, car transfer, walking 10 feet, 50 feet with 2 turns, 150 feet, 10 feet on uneven surfaces, picking up object and also wheelchair for 50 and 150 feet. He still required part
== END 2019-07-10 18:11 | disposition home health service (06) | DRG 57 ==
PROVIDERS: Internal Medicine Nephrology; Orthopaedic Surgery; Admitting Provider Psychiatry & Neurology Neurology; Visit Provider Psychiatry & Neurology Neurology
DX: I69.151 Hemiplegia and hemiparesis following nontraumatic intracerebral hemorrhage affecting right dominant side (principal); I69.154 Hemiplegia and hemiparesis following nontraumatic intracerebral hemorrhage affecting left non-dominant side; I69.111 Memory deficit following nontraumatic intracerebral hemorrhage; I69.120 Aphasia following nontraumatic intracerebral hemorrhage; D63.1 Anemia in chronic kidney disease; E11.22 Type 2 diabetes mellitus with diabetic chronic kidney disease; E78.5 Hyperlipidemia, unspecified; I12.9 Hypertensive chronic kidney disease with stage 1 through stage 4 chronic kidney disease, or unspecified chronic kidney disease; I44.0 Atrioventricular block, first degree; M19.072 Primary osteoarthritis, left ankle and foot; M19.071 Primary osteoarthritis, right ankle and foot; M25.462 Effusion, left knee; N40.1 Benign prostatic hyperplasia with lower urinary tract symptoms; N28.1 Cyst of kidney, acquired; N18.3 Chronic kidney disease, stage 3 (moderate); R53.83 Other fatigue; Z87.891 Personal history of nicotine dependence
CPT/HCPCS: 36415; 70450; 71046; 73560; 73620; 76775; 80048; 80061; 80069; 81001; 82550; 82570; 83883; 84156; 84300; 84550; 85025; 85027; 85652; 85999; 86038; 86160; 86162; 86334; 87070; 87075; 87081; 87205; 88108; 89051; 89060; 92507; 92523; 92610; 93970; 95816; 97110; 97116; 97150; 97162; 97166; 97530; 97535; 97542; A9270; J1040